=== PATIENT | female | born 1935 | race Caucasian/White ===

== ENCOUNTER 2021-03-08 09:35 | Observation (INO) ==
[2021-03-08 10:10] LABS: Basophils # (auto) 0.02 K/uL (0-0.2); Basophils % (auto) 0.2 %; Eosinophils # (auto) 0.59 K/uL (0-0.5); Eosinophils % (auto) 6.1 %; Hematocrit (blood only) 34.9 % (37-47); Hemoglobin 11.5 g/dL (12.0-16.0); Immature Granulocytes # (auto) 0.03 K/uL (0.00-0.02); Immature Granulocytes % (auto) 0.3 %; Lymphocytes # (auto) 1.03 K/uL (1.2-3.4); Lymphocytes % (auto) 10.7 %; Mean Corpuscular Hemoglobin 27.8 pg (25-34); Mean Corpuscular Volume 84.3 fL (80-100); Mean Platelet Volume 8.7 fL (7.4-10.4); Monocytes # (auto) 0.73 K/uL (0.11-0.59); Monocytes % (auto) 7.6 %; Neutrophils # (auto) 7.26 K/uL (1.4-6.5); Neutrophils % (auto) 75.1 %; Platelet Count 352 K/uL (130-400); RDW Coefficient of Variation 14.9 % (11.5-14.5); RDW Standard Deviation 46.2 fL (36.4-46.3); Red Blood Count 4.14 M/uL (4.2-5.4); White Blood Count 9.66 K/uL (4.8-10.8)
[2021-03-08] MEDS ORDERED: ONDANSETRON INJ 2 MG/ML 2 ML VIAL IV STA (10:27)
[2021-03-08] MEDS ORDERED: fentaNYL citrate 100 MCG/2 ML VIAL IV STA (10:27)
[2021-03-08 10:30] LABS: Alanine Aminotransferase 21 U/L (12-78); Albumin Level 3.7 gm/dl (3.4-5.0); Aspartate Aminotransferase 22 U/L (15-37); BUN Creatinine Ratio 36.3 (10-20); Blood Urea Nitrogen 23 mg/dl (7-18); Calcium 9.8 mg/dl (8.5-10.1); Carbon Dioxide 30 mmol/L (21-32); Chloride 96 mmol/L (98-107); Est GFR (Non-African American) 82.8 ml/min; Glucose 108 mg/dl (70-99); Potassium 3.5 mmol/L (3.5-5.1); Sodium 132 mmol/L (136-145)
[2021-03-08 10:40] LABS: Alkaline Phosphatase 60 U/L (45-117); Bilirubin,Total 0.4 mg/dl (0.2-1); Globulin 3.6 gm/dl (2.5-4.0); Total Protein 7.3 gm/dl (6.4-8.2); Troponin I < 0.015 ng/ml (0-0.045)
[2021-03-08] MEDS ORDERED: OPTIRAY 320 100ml IV ONE (10:44)
--- NOTE | 2021-03-08 10:50 | Emergency Department Note ---
Impression & Plan C7 cervical fracture, Recurrent falls, Left rib fracture, Fall, Closed head injury ED Provider Note Name: PINEDA GOTTI Age: 85 Sex: F Arrives Via: Walk-In Informant: Patient, Daughter] ED Provider: Rian Oviedo MD Chief Complaint: falls Impression: As Per ImpressionsAbove Medical Decision Makin yr old female with extensive PMH recently moved to [facility] and is in ED for send fall evaluation in the last 10 days. She broke right fibula last week and was going in to ortho today when tripped and fell over stoop, landing on left side & hitting posterior head. Exam with large hematoma back of head and TTP over left ribs. Pain controlled effectively with fentanyl. Xrays done at [facility] reveal multiple rib fractures varying ages. [place] ct imaging indicated which reveals no ICH, a new 25% compression fx C7, and multiple left rib fracture (1 of which is new). Stable, breathing comfortably, and labs/ekg look OK. Initially concern for syncope though after discussion with daughter and patient they both clearly state this was mechanical in nature without LOC. I will note she has no neck pain but given age and [facility] CT cervical had been completed finding the C7 fracture. I did review this with out Spinal Surgeon educational institution president who feels this is something that can be kept here for further evaluation and advised MRI obtained for his evaluation as inpatient. Hospitalist consulted as I do not feel this patient is safe for discharge at this time. Daughter and patient agree with this plan of action. Prior Medical Record and Triage/Nursing Notes reviewed by Me Additional history obtained from chart Differentials:Fracture, dislocation, contusion, intra-abdominal, pneumothorax, intrathoracic, intracranial, neurologic, compartment syndrome, rhabdomyolysis, as well as other pathologies. Vital Signs: reviewed and remarkable for no significant abnormalities Interventions: Fentanyl IV Labs:Reviewed and remarkable for no significant abnormalities Imaging:See Below EKG:Per My Interpretation: Indication fall (possible syncope): NSR 81 bpm, qtc 432 with poor baseline though no Ectopy nor Ischemia. Compared to EKG 02/28/21, no significant changes. Consults:Dr Lesia KERR Hospitalist Plan: Disposition:Hospitalization. Condition: Good History of Present Illness:85 yr old female arrives for evaluation of falls. Patient recently moved to [place] from [place] about 2 months ago and has yet to set up PCP. She notes the last two weeks has been feeling weak and tired. Associated with multiple falls and injuries. She fell and broke right ankle just last week. Was being seen in ortho today when tripped going over a step, fell on left back side. Notes posterior headache and severe pain with breathing on left posterior side. No syncope nor lightheadedness prior to fall. She notes she currently feels quite dizzy and pain is severe. Denies new arm/leg injuries and has no specific back nor abdominal no neck pain. No vision changes, nausea, vomiting, fevers, chills, urinary/bowel symptoms, swelling, calf pain, nor other symptoms. Takes no blood thinners nor aspirin. Denies previous head injury issues. No medications prior to arrival. Movement makes worse, rest makes better. ROS: See above HPI for pertinent positives & negatives. A total of 10 systems reviewed and were otherwise negative. Past Medical History:See Below Past Surgical History:See Below Family History:See Below Social History:See Below Home Medications:See Below Allergies:See Below Vitals:Blood Pressure: 161/80, Pulse 77, RR 16, T 3.5C, O2 98% on RA Physical Exam: GENERAL: Patient is unwell appearing and in moderate distress. HEAD: Large hematoma left occipital scalp. EYES: No scleral icterus, unremarkable pupils. ENT: Mucous membranes moist, no nasal congestion. NECK: No masses appreciated, nomeningismus, trachea is midline. CHEST: TTP entire left rib area laterally RESPIRATORY: No dyspnea. Clear to auscultation and equal bilaterally. No wheeze, no rhonchi. CARDIOVASCULAR: Regular rate and rhythm.No murmurs, rubs, gallops appreciated. GASTROINTESTINAL: Abdomen soft, non-tender, no peritonitis.Bowel sounds positive.No masses appreciated. BACK: No midline tenderness, no CVA tenderness EXTREMITIES: Right ankle in boot, multiple abrasions of arms/legs. Normal motion all extremities, no cyanosis, no edema. NEUROLOGIC: Alert and oriented, no acute motor or sensory deficits, no focal weakness, cranial nerves grossly intact. SKIN: No rash, no jaundice, no diaphoresis. PSYCH: Appropriate GCS: 15 ED Course: Times/Reassessments: feeling much improved comfortable with [place] J in place. Breathing without difficulty. Rian Oviedo MD Past Med/Surg History Medical History Anxiety Depression Fibromyalgia GERD (gastroesophageal reflux disease) Hypothyroidism Rheumatoid arthritis Surgical History H/O total hip arthroplasty H/O total knee replacement H/O: hysterectomy History of lumbar fusion History of partial nephrectomy Family History Other No pertinent family history Social History Smoking Status: Never smoker Second Hand Exposure: No; Do You Dip or Chew Tobacco: No; Tobacco Cessation Education Requested by Patient: No Hx Alcohol Use: No Hx Substance Use: No Preferred Language: Fijian Communication Ability: Effective Security Investigator Required: No Beliefs That Will Affect Care: None Current Living Situation: Other current occupational status: retired Other Information That Helps Us Care for You: No Feels Safe at Home: Yes Safety Concerns: Feels Safe At This Time Assistive Devices: None Allergies Allergies Allergy/AdvReac Type Severity Reaction Status Date / Time morphine Allergy Unknown DIZZINESS Verified 03/08/21 11:08 nickel Allergy Unknown EARS GET Verified 03/08/21 11:08 SORE FROM [place] WITH NICKEL Penicillins Allergy Unknown RASH Verified 03/08/21 11:08 soy Allergy Unknown HEADACHE Verified 03/08/21 11:08 Home Meds Home Medications Medication Instructions Recorded Confirmed albuterol sulfate 2.5 mg INHALATION DAILY PRN 03/08/21 03/08/21 aspirin 81 mg capsule 81 mg PO DAILY 03/08/21 03/08/21 budesonide-formoterol HFA 160 2 puff INHALATION BID PRN 03/08/21 03/08/21 mcg-4.5 mcg/actuation aerosol inhaler (Symbicort) calcium carbonate 500 mg calcium 1,000 mg PO BID 03/08/21 03/08/21 (1,250 mg) tablet (Calcium 500) dexlansoprazole 60 mg 60 mg PO DAILY 03/08/21 03/08/21 capsule,biphase delayed release (Dexilant) duloxetine 60 mg capsule,delayed 60 mg PO HS 03/08/21 03/08/21 release fesoterodine 4 mg tablet,extended 4 mg PO DAILY 03/08/21 03/08/21 release 24 hr (Toviaz) fluoxetine 20 mg capsule 10 mg PO BID 03/08/21 03/08/21 ipratropium bromide 21 mcg (0.03 2 spray INTRANASAL BID PRN 03/08/21 03/08/21 %) nasal spray levothyroxine 75 mcg tablet 75 mcg PO DAILY 03/08/21 03/08/21 lifitegrast 5 % eye drops in a 1 drp OPHTHALMIC (EYE) BID PRN 03/08/21 03/08/21 dropperette (Xiidra) magnesium 200 mg tablet 1,200 mg PO DAILY 03/08/21 03/08/21 methocarbamol 750 mg tablet 1,500 mg PO TID 03/08/21 03/08/21 pramipexole 1 mg tablet 2 mg PO HS 03/08/21 03/08/21 prednisone 5 mg tablet 2.5 mg PO BID 03/08/21 03/08/21 pregabalin 150 mg capsule 150 mg PO TID 03/08/21 03/08/21 tapentadol 50 mg tablet (Nucynta) 50 mg PO TID 03/08/21 03/08/21 Previous Rx's Medication Instructions Recorded etodolac 200 mg capsule 200 mg PO Q12H PRN #14 cap 02/28/21 Results & Data (ED) Vital Signs Vital Signs - 24 hr 03/08/21 11:17 03/08/21 12:00 Pulse Rate 77 87 Pulse Rate from SpO2 Sensor 76 87 Respiratory Rate 13 18 Blood Pressure 144/87 H 144/87 H Blood Pressure Mean 106 106 Pulse Oximetry 97 100 Laboratory Data Result diagrams: 03/09/21 06:09 03/09/21 06:09 Lab Results 03/08/21 03/08/21 03/08/21 Range/Units 10:00 10:00 10:00 WBC 9.66 (4.8-10.8) K/uL RBC 4.14 L (4.2-5.4) M/uL Hgb 11.5 L (12.0-16.0) g/dL Hct 34.9 L (37-47) % MCV 84.3 (80-100) fL MCH 27.8 (25-34) pg MCHC 33.0 (32-36) g/dL RDW Std Deviation 46.2 (36.4-46.3) fL RDW Coeff of Edgard 14.9 H (11.5-14.5) % Plt Count 352 (130-400) K/uL MPV 8.7 (7.4-10.4) fL Immature Gran % (Auto) 0.3 % Neut % (Auto) 75.1 % Lymph % (Auto) 10.7 % Blaine % (Auto) 7.6 % Eos % (Auto) 6.1 % Baso % (Auto) 0.2 % Neut # (Auto) 7.26 H (1.4-6.5) K/uL Lymph # (Auto) 1.03 L (1.2-3.4) K/uL Blaine # (Auto) 0.73 H (0.11-0.59) K/uL Eos # (Auto) 0.59 H (0-0.5) K/uL Baso # (Auto) 0.02 (0-0.2) K/uL Immature Gran # (Auto) 0.03 H (0.00-0.02) K/uL ESR 20 (0-30) mm/hr Sodium 132 L (136-145) mmol/L Potassium 3.5 (3.5-5.1) mmol/L Chloride 96 L (98-107) mmol/L Carbon Dioxide 30 (21-32) mmol/L Anion Gap 6.0 (3-11) BUN 23 H (7-18) mg/dl Creatinine 0.62 (0.6-1.2) mg/dl Est Cr Clr Drug Dosing Not Reportable Est GFR ( Amer) 96.0 ml/min Est GFR (Non-Af Amer) 82.8 ml/min BUN/Creatinine Ratio 36.3 H (10-20) Glucose 108 H (70-99) mg/dl Calcium 9.8 (8.5-10.1) mg/dl Total Bilirubin 0.4 (0.2-1) mg/dl AST 22 (15-37) U/L ALT 21 (12-78) U/L Alkaline Phosphatase 60 (45-117) U/L Troponin I < 0.015 (0-0.045) ng/ml C-Reactive Protein (0-0.29) mg/dl Total Protein 7.3 (6.4-8.2) gm/dl Albumin 3.7 (3.4-5.0) gm/dl Globulin 3.6 (2.5-4.0) gm/dl Albumin/Globulin Ratio 1.0 (0.9-2) TSH 7.820 H (0.300-4.500) uIu/ml COVID-19 Eval Order SARS-CoV-2 (PCR) (Negative) 03/08/21 03/08/21 03/08/21 Range/Units 10:00 12:33 12:33 WBC (4.8-10.8) K/uL RBC (4.2-5.4) M/uL Hgb (12.0-16.0) g/dL Hct (37-47) % MCV (80-100) fL MCH (25-34) pg MCHC (32-36) g/dL RDW Std Deviation (36.4-46.3) fL RDW Coeff of Edgard (11.5-14.5) % Plt Count (130-400) K/uL MPV (7.4-10.4) fL Immature Gran % (Auto) % Neut % (Auto) % Lymph % (Auto) % Blaine % (Auto) % Eos % (Auto) % Baso % (Auto) % Neut # (Auto) (1.4-6.5) K/uL Lymph # (Auto) (1.2-3.4) K/uL Blaine # (Auto) (0.11-0.59) K/uL Eos # (Auto) (0-0.5) K/uL Baso # (Auto) (0-0.2) K/uL Immature Gran # (Auto) (0.00-0.02) K/uL ESR (0-30) mm/hr Sodium (136-145) mmol/L Potassium (3.5-5.1) mmol/L Chloride (98-107) mmol/L Carbon Dioxide (21-32) mmol/L Anion Gap (3-11) BUN (7-18) mg/dl Creatinine (0.6-1.2) mg/dl Est Cr Clr Drug Dosing Est GFR ( Amer) ml/min Est GFR (Non-Af Amer) ml/min BUN/Creatinine Ratio (10-20) Glucose (70-99) mg/dl Calcium (8.5-10.1) mg/dl Total Bilirubin (0.2-1) mg/dl AST (15-37) U/L ALT (12-78) U/L Alkaline Phosphatase (45-117) U/L Troponin I (0-0.045) ng/ml C-Reactive Protein 3.47 H (0-0.29) mg/dl Total Protein (6.4-8.2) gm/dl Albumin (3.4-5.0) gm/dl Globulin (2.5-4.0) gm/dl Albumin/Globulin Ratio (0.9-2) TSH (0.300-4.500) uIu/ml COVID-19 Eval Order Covid19 at [facility] SARS-CoV-2 (PCR) NEGATIVE (Negative) Administered Medications Acetaminophen (Acetaminophen 500 Mg Tab) 1,000 mg PO TID PHILLIP Stop: 04/07/21 13:59 Last Admin: 03/09/21 09:05 Dose: 1,000 mg Documented by: [id number] Admin: 03/08/21 20:54 Dose: 1,000 mg Documented by: [id number] Admin: 03/08/21 13:57 Dose: 1,000 mg Documented by: [id number] Aspirin (Aspirin 81 Mg Ectab) 81 mg PO DAILY PHILLIP Stop: 04/08/21 08:59 Last Admin: 03/09/21 09:04 Dose: 81 mg Documented by: [id number] Bisacodyl (Bisacodyl 5 Mg Tabec) 5 mg PO HS PRN PRN Reason: Constipation Stop: 04/07/21 21:16 Last Admin: 03/08/21 21:27 Dose: 5 mg Documented by: [id number] Calcium Carbonate (Calcium Carbonate 1250mg Tab) 1,250 mg PO BID PHILLIP Stop: 04/07/21 20:59 Last Admin: 03/09/21 09:04 Dose: 1,250 mg Documented by: [id number] Admin: 03/08/21 20:54 Dose: 1,250 mg Documented by: [id number] Duloxetine HCl (Duloxetine Hcl 60 Mg Cap) 60 mg PO HS PHILLIP Stop: 04/07/21 20:59 Last Admin: 03/08/21 20:54 Dose: 60 mg Documented by: [id number] Fluoxetine HCl (Fluoxetine Hcl 10 Mg Cap) 10 mg PO BID PHILLIP Stop: 04/07/21 20:59 Last Admin: 03/09/21 09:04 Dose: 10 mg Documented by: [id number] Admin: 03/08/21 20:55 Dose: 10 mg Documented by: [id number] Levothyroxine Sodium (Levothyroxine Sodium 75 Mcg Tablet) 75 mcg PO DAILYBB PHILLIP Stop: 04/08/21 06:29 Last Admin: 03/09/21 05:35 Dose: 75 mcg Documented by: [id number] Magnesium Oxide (Magnesium Oxide 400 Mg Tab) 1,200 mg PO DAILY PHILLIP Stop: 04/08/21 08:59 Last Admin: 03/09/21 09:04 Dose: 1,200 mg Documented by: [id number] Miscellaneous (Toviaz - Order Awaiting Action) 1 ea N/A QS [facility] Stop: 04/08/21 00:00 Last Admin: 03/09/21 07:29 Dose: Not Given Documented by: [id number] Admin: 03/09/21 00:48 Dose: Not Given Documented by: [id number] Miscellaneous (Etodolac - Order Awaiting Action) 1 ea N/A QS [facility] Stop: 04/08/21 00:00 Last Admin: 03/09/21 07:29 Dose: Not Given Documented by: [id number] Admin: 03/09/21 00:47 Dose: Not Given Documented by: [id number] Miscellaneous (Lifitegrast [Xiidra] - Order Awaiting Action) 1 ea N/A QS [facility] Stop: 04/08/21 00:00 Last Admin: 03/09/21 07:29 Dose: Not Given Documented by: [id number] Admin: 03/09/21 00:48 Dose: Not Given Documented by: [id number] Pantoprazole Sodium (Pantoprazole 40 Mg Tab) 40 mg PO DAILY PHILLIP Stop: 04/08/21 08:59 Last Admin: 03/09/21 09:04 Dose: 40 mg Documented by: [id number] Polyethylene Glycol (Polyethylene (Miralax) 17 Gm Pack) 17 gm PO DAILY PHILLIP Stop: 04/08/21 08:59 Last Admin: 03/09/21 09:05 Dose: 17 gm Documented by: [id number] Pramipexole Dihydrochloride (Pramipexole Dihydrochlo 0.5 Mg Tab) 2 mg PO HS [facility] Stop: 04/07/21 20:59 Last Admin: 03/08/21 20:56 Dose: 2 mg Documented by: [id number] Prednisone (Prednisone 2.5 Mg Tab) 2.5 mg PO BID PHILLIP Stop: 04/07/21 20:59 Last Admin: 03/09/21 09:04 Dose: 2.5 mg Documented by: [id number] Admin: 03/08/21 20:57 Dose: 2.5 mg Documented by: [id number] Pregabalin (Pregabalin 150 Mg Cap) 150 mg PO TID PHILLIP Stop: 04/07/21 20:59 Last Admin: 03/09/21 09:05 Dose: 150 mg Documented by: [id number] Admin: 03/08/21 20:57 Dose: 150 mg Documented by: [id number] Tapentadol (Tapentadol Hcl 50 Mg Tab) 50 mg PO TID PRN PRN Reason: Pain Stop: 03/22/21 15:09 Last Admin: 03/08/21 20:57 Dose: 50 mg Documented by: [id number] Discontinued Medications Fentanyl Citrate (Fentanyl Citrate 100 Mcg/2 Ml Vial) 50 mcg IV NOW STA Stop: 03/08/21 10:28 Last Admin: 03/08/21 11:17 Dose: 50 mcg Documented by: [id number] Sodium Chloride (Nss 1000ml) 1,000 mls @ 999 mls/hr IV .Q1H1M ONE Stop: 03/08/21 11:51 Last Infusion: 03/08/21 12:36 Dose: 0 mls/hr Documented by: [id number] Admin: 03/08/21 11:17 Dose: 999 mls/hr Documented by: [id number] Ioversol (Optiray 320 100ml) 94 ml IV ONCE ONE Stop: 03/08/21 10:45 Last Admin: 03/08/21 10:50 Dose: 94 ml Documented by: [id number] Ketorolac Tromethamine (Ketorolac Tromethamine 15 Mg/Ml Vial) 15 mg IV NOW ONE Stop: 03/08/21 23:14 Last Admin: 03/08/21 23:25 Dose: 15 mg Documented by: [id number] Ondansetron HCl (Ondansetron Inj 2 Mg/Ml 2 Ml Vial) 4 mg IV NOW STA Stop: 03/08/21 10:28 Last Admin: 03/08/21 11:17 Dose: 4 mg Documented by: [id number] Imaging Data Radiologist's Impression: Cervical Spine CT 03/08/21 10:27 CT cervical spine wo con CT DOSE: 1067.13 mGy.cm CLINICAL HISTORY: 85 years-old Female with fall, head injury, posterior pain. Acute head and neck injury status post fall COMPARISON: CT cervical spine 02/28/2021 TECHNIQUE: Multiple axial CT images of the cervical spine were obtained without contrast. A dose lowering technique was utilized adhering to the principles of ALARA. FINDINGS: Demineralized appearance of the bones. Moderate to severe degeneration with partially calcified pannus at C1-C2. Mild chronic appearing superior endplate compression at several levels. 4 mm anterolisthesis C4 on C5 is unchanged and likely degenerative. Moderate to severe multilevel facet arthr osis. Posterior disc osteophyte complex at C6-C7. Indeterminate 8 mm lucent focus involves the left C4 lamina is redemonstrated. Multilevel intervertebral disc space narrowing, moderate left C5-C6. Multilevel central canal and neural foraminal narrowing is noted. There is an acute C7 compression fracture with approximately 25% vertebral body height loss. 3 mm retropulsion. No significant paravertebral edema or high-grade central canal stenosis. No pneumothorax. No prevertebral edema. Calcified plaque of the carotid bulbs. IMPRESSION: Acute 25% superior endplate compression deformity of C7 with 3 mm retropulsion is new from 02/28/2021. No significant central canal stenosis. ACT 112: Negative or not required by law. The above report was generated using voice recognition software. It may contain grammatical, syntax or spelling errors. Electronically signed by: Robbi Fofana M.D. 03/08/2021 11:[address] 03/08/21 10:27 CT SCAN OF THE CHEST WITH IV CONTRAST CLINICAL HISTORY: Fall. Left-sided chest wall injury. COMPARISON STUDY: Chest and rib radiographs dated 03/08/2021. Chest x-ray dated 11/21/2015. TECHNIQUE: Following the IV administration of 94 cc of Optiray 320, CT scan of the thorax was performed from the thoracic inlet to the upper abdomen. Images are reviewed in the axial, sagittal, and coronal planes. IV contrast was administered without complication. A dose lowering technique was utilized a dhering to the principles of ALARA. There is streak artifact from the left arm which could not be elevated above the chest. FINDINGS: Thyroid: Atrophic. Thoracic aorta: There is atherosclerotic calcification of the thoracic aorta, which is normal in caliber and demonstrates standard 3-vessel arch anatomy. No dissection is seen. Pulmonary vasculature: The pulmonary trunk is normal in caliber. There are no filling defects identified in the central pulmonary vessels to indicate pulmonary embolus. Note that this examination was not protocoled for evaluation of the pulmonary arteries. Heart: The heart is enlarged and without pericardial effusion. The mitral annulus is densely calcified. Lungs and pleural spaces: There is no airspace consolidation, pleural effusion, or pneumothorax. Foci of scarring/atelectasis are seen throughout both lungs. The trachea and central airways are clear. Mediastinum: There is no mediastinal hematoma or lymphadenopathy. Anahi: Clear. Axillae: There is no axillary lymphadenopathy. Upper abdomen: There is a small hiatal hernia. Partially visualized upper abdominal viscera is otherwise within normal limits. Skeletal structures: The skeletal structures are osteopenic. There is an acute appearing left posterior 8th rib fracture. There are subacute/healing left posterior 6th and 7th rib fractures. There are numerous additional subacute to chronic appearing left anterior rib fractures. There are also several subacute appearing right anterolateral rib fractures. No lytic or blastic bony lesions are seen. There is chronic posttraumatic deformity of the sternum. There is a s evere chronic compression deformity of T8. Milder chronic compression deformities are noted in T5 and T11. These were also seen on 01/13/2016 chest x- ray. IMPRESSION: 1. There is an acute appearing left posterior 8th rib fracture. 2. Numerous additional subacute appearing rib fractures are seen bilaterally. 3. There is no airspace consolidation, pleural effusion, or pneumothorax. 4. Cardiomegaly. 5. Additional findings as above. ACT 112: Negative or not required by law. Electronically signed by: Jose Maria Santiago M.D. 03/08/2021 11:[address] 03/08/21 10:27 CT OF THE HEAD WITHOUT CONTRAST CLINICAL HISTORY: fall, head injury COMPARISON STUDY: Head CT February 28, 2021. TECHNIQUE: Helical axial images of the head were obtained without IV contrast. Automated exposure control was utilized for the study. A dose lowering technique was utilized adhering to the principles of ALARA. FINDINGS: No acute intracranial hemorrhage, midline shift or mass effect is present. The ventricular system is unremarkable. The basal cisterns are patent. No extra-axial collections are present. There are no findings to suggest acute dural sinus thrombosis or acute territorial infarct. No significant calvarial abnormalities are present. Visualized portions of the sinuses and mastoid air cells are clear. A left posterior scalp contusion is present. IMPRESSION: 1. No acute intracranial findings. 2. Left posterior scalp contusion. No calvarial fracture. ACT 112: Negative or not required by law. Electronically signed by: Dominic Sutton M.D. 03/08/2021 11:05 AM Cervical Spine MRI 03/08/21 11:54 MR cervical spine wo con HISTORY: 85 years-old Female C7 Fracture follow up study in a patient with acute C7 fracture COMPARISON: CT cervical spine of same day TECHNIQUE: Multiple axial CT images of the cervical spine were obtained without the use of IV contrast. FINDINGS: Motion degraded exam limits evaluation of the central canal and neural foramina. The imaged posterior fossa structures are unremarkable. There is an acute superior endplate compression deformity at C7 and with approximately 25% vertebral body height loss. 3 mm retropulsion. Central canal or neural foraminal narrowing as below. Mild to moderate prevertebral edema extends from C3-C4 through the upper thoracic spine. Likely degenerative marrow edema at C5-C6. Mild to moderate bone marrow edema of the facets and posterior elements is likely degenerative. Left-sided C4-C5 facet effusion. C2-C3: Uncovertebral spurring with small posterior disc osteophyte complex and facet arthrosis. The central canal is patent. Moderate right and mild left neural foraminal stenosis. C3-C4: Uncovertebral spurring with small posterior disc osteophyte complex and facet arthrosis. Mild central canal stenosis. Mild to moderate bilateral neural foraminal stenosis. C4-C5: Degenerative related grade 1 anterolisthesis. Uncovertebral spurring with posterior disc osteophyte complex and facet arthrosis. No significant central canal stenosis. Moderate left with mild to moderate right neural foraminal narrowing suggested. C5-C6: Severe intervertebral disc space narrowing with uncovertebral spurring and small posterior disc osteophyte complex with facet arthrosis. Mild central canal stenosis. There is suggestion of moderate bilateral neural foraminal stenosis. C6-C7: Acute T7 fracture with retropulsion flattens the ventral thecal sac. No significant central canal narrowing. Mild bilateral foraminal stenosis. C7-T1: No central canal or neural foraminal narrowing. IMPRESSION: 1. Moderately motion degraded exam. 2. Acute 25% superior endplate compression deformity at C7 with 3 mm retropulsion. No significant associated central canal stenosis. 3. Prevertebral edema extending from C3-C4 through the upper thoracic spine is likely secondary to the acute C7 fracture. An injury of the anterior longitudinal ligament could appear similarly. 4. Multilevel discogenic degeneration with facet arthrosis results in multilevel neural foraminal stenosis as above. 5. Mild degenerative related central canal stenosis at C5-C6. ACT 112: Negative or not required by law. The above report was generated using voice recognition software. It may contain grammatical, syntax or spelling errors. Electronically signed by: Robbi Fofana M.D. 03/08/2021 1:58 PM Discharge Plan Visit Data Chief Complaint: Syncope Stated Complaint: SYNCOPE ED Provider: Rian Oviedo Discharge Problem: C7 cervical fracture, Recurrent falls, Left rib fracture, Fall, Closed head injury Patient Disposition: Admitted As Inpatient Discharge Instructions Interventions: ED Discharge Assessment Last Done: 03/08/21 14:55 Discharge Problem: C7 cervical fracture Qualifiers: Encounter type: initial encounter Fracture type: closed Fracture morphology: unspecified fracture morphology Fracture alignment: nondisplaced Qualified Code(s): S12.601A - Unspecified nondisplaced fracture of seventh cervical vertebra, initial encounter for closed fracture Left rib fracture Qualifiers: Encounter type: initial encounter Rib fracture type: single rib Fracture type: closed Qualified Code(s): S22.32XA - Fracture of one rib, left side, initial encounter for closed fracture Fall Qualifiers: Encounter type: initial encounter Qualified Code(s): W19.XXXA - Unspecified fall, initial encounter Closed head injury Qualifiers: Encounter type: initial encounter Qualified Code(s): S09.90XA - Unspecified injury of head, initial encounter
[2021-03-08] MEDS ORDERED: SODIUM CHLORIDE 0.9% 1000ML 1,000 ML IV ONE (10:51)
--- NOTE | 2021-03-08 11:05 | CT Scan Report ---
CT cervical spine wo con CT DOSE: 1067.13 mGy.cm CLINICAL HISTORY: 85 years-old Female with fall, head injury, posterior pain. Acute head and neck in jury status post fall COMPARISON: CT cervical spine 02/28/2021 TECHNIQUE: Multiple axial CT images of the cervical spine were obtained without contrast. A dose low ering technique was utilized adhering to the principles of ALARA. FINDINGS: Demineralized appearance of the bones. Moderate to severe degeneration with partially calci fied pannus at C1-C2. Mild chronic appearing superior endplate compression at several levels. 4 mm an terolisthesis C4 on C5 is unchanged and likely degenerative. Moderate to severe multilevel facet arth rosis. Posterior disc osteophyte complex at C6-C7. Indeterminate 8 mm lucent focus involves the left C4 lamina is redemonstrated. Multilevel intervertebral disc space narrowing, moderate left C5-C6. Mul tilevel central canal and neural foraminal narrowing is noted. There is an acute C7 compression fract ure with approximately 25% vertebral body height loss. 3 mm retropulsion. No significant paravertebra l edema or high-grade central canal stenosis. No pneumothorax. No prevertebral edema. Calcified plaque of the carotid bulbs. IMPRESSION: Acute 25% superior endplate compression deformity of C7 with 3 mm retropulsion is new from 02/28/2021. No significant central canal stenosis. ACT 112: Negative or not required by law. The above report was generated using voice recognition software. It may contain grammatical, syntax o r spelling errors. Electronically signed by: Robbi Fofana M.D. 03/08/2021 11:04 AM
--- NOTE | 2021-03-08 11:06 | CT Scan Report ---
CT OF THE HEAD WITHOUT CONTRAST CLINICAL HISTORY: fall, head injury COMPARISON STUDY: Head CT February 28, 2021. TECHNIQUE: Helical axial images of the head were obtained without IV contrast. Automated exposure con trol was utilized for the study. A dose lowering technique was utilized adhering to the principles o f ALARA. FINDINGS: No acute intracranial hemorrhage, midline shift or mass effect is present. The ventricular system is unremarkable. The basal cisterns are patent. No extra-axial collections are present. There are no findings to suggest acute dural sinus thrombosis or acute territorial infarct. No significant calvarial abnormalities are present. Visualized portions of the sinuses and mastoid air cells are marin ar. A left posterior scalp contusion is present. IMPRESSION: 1. No acute intracranial findings. 2. Left posterior scalp contusion. No calvarial fracture. ACT 112: Negative or not required by law. Electronically signed by: Dominic Sutton M.D. 03/08/2021 11:05 AM
--- NOTE | 2021-03-08 11:16 | CT Scan Report ---
CT SCAN OF THE CHEST WITH IV CONTRAST CLINICAL HISTORY: Fall. Left-sided chest wall injury. COMPARISON STUDY: Chest and rib radiographs dated 03/08/2021. Chest x-ray dated 11/21/2015. TECHNIQUE: Following the IV administration of 94 cc of Optiray 320, CT scan of the thorax was perform ed from the thoracic inlet to the upper abdomen. Images are reviewed in the axial, sagittal, and lavern nal planes. IV contrast was administered without complication. A dose lowering technique was utilize d adhering to the principles of ALARA. There is streak artifact from the left arm which could not be elevated above the chest. FINDINGS: Thyroid: Atrophic. Thoracic aorta: There is atherosclerotic calcification of the thoracic aorta, which is normal in [place] and demonstrates standard 3-vessel arch anatomy. No dissection is seen. Pulmonary vasculature: The pulmonary trunk is normal in caliber. There are no filling defects identif ied in the central pulmonary vessels to indicate pulmonary embolus. Note that this examination was no t protocoled for evaluation of the pulmonary arteries. Heart: The heart is enlarged and without pericardial effusion. The mitral annulus is densely calcifie d. Lungs and pleural spaces: There is no airspace consolidation, pleural effusion, or pneumothorax. Foci of scarring/atelectasis are seen throughout both lungs. The trachea and central airways are clear. Mediastinum: There is no mediastinal hematoma or lymphadenopathy. Anahi: Clear. Axillae: There is no axillary lymphadenopathy. Upper abdomen: There is a small hiatal hernia. Partially visualized upper abdominal viscera is otherw ise within normal limits. Skeletal structures: The skeletal structures are osteopenic. There is an acute appearing left posteri or 8th rib fracture. There are subacute/healing left posterior 6th and 7th rib fractures. There are n umerous additional subacute to chronic appearing left anterior rib fractures. There are also several subacute appearing right anterolateral rib fractures. No lytic or blastic bony lesions are seen. Ther e is chronic posttraumatic deformity of the sternum. There is a severe chronic compression deformity of T8. Milder chronic compression deformities are noted in T5 and T11. These were also seen on 016 chest x-ray. IMPRESSION: 1. There is an acute appearing left posterior 8th rib fracture. 2. Numerous additional subacute appearing rib fractures are seen bilaterally. 3. There is no airspace consolidation, pleural effusion, or pneumothorax. 4. Cardiomegaly. 5. Additional findings as above. ACT 112: Negative or not required by law. Electronically signed by: Jose Maria Santiago M.D. 03/08/2021 11:14 AM
--- NOTE | 2021-03-08 13:24 | History & Physical Report ---
Date of Service March 08, 2021 Assessment & Plan (1) Multiple falls: Plan: Multifactorial including arthritis, peripheral neuropathy, iatrogenic (Nucynta, Lyrica, Diazepam, methocarbamol), lumbar spinal stenosis PT/OT (2) Cervical spine fracture: Plan: Saul Walden collar Consult ortho spine Vit D levels in AM, recommend DEXA scan as outpatient to consider bisphosphonate use (3) Closed fracture of heel bone: Plan: Toe touch weight bearing on right foot per last ortho note recommendations Given uncontrolled pain from this possibly contributing towards fall and limited options of pain killers will consult pain management to help with this (4) Cuboid fracture: Plan: As above (5) GERD (gastroesophageal reflux disease): Plan: Switch Dexilant for pantoprazole per hospital formulary (6) Fibromyalgia: Plan: Continue Lyrica and chronic pain medications with Nucynta (7) Depression: Plan: Continue fluoxetine 10mg PO daily and duloxetine 60mg PO HS (8) Rheumatoid arthritis: Plan: Continue chronic prednisone use 2.5mg PO BID Continue her chronic pain medications with Nucytna (9) Hypothyroidism: Plan: TSH 7.82. In setting of acute fall would not adjust her levothyroxine dosing. Repeat in 4-6 weeks. (10) Restless leg syndrome: Plan: Continue pramipexole 2mg PO HS Iron studies in AM (11) Lumbar stenosis with neurogenic claudication: Plan: Noted recent surgery for this ?cause of neuropathy. (12) Peripheral neuropathy: Plan: Unclear cause of this. B12 levels in AM. No diabetes. Recommend NCS as outpatient. (13) Overactive bladder: Plan: Continue Toviaz 4mg PO daily (14) Asthma: Plan: Unknown severity. Continue Symbicort 2 puff BID or hospital formulary equivalent. Plan: VTE Prophylaxis - SCDs, consider chemical prophylaxis depending on mobility Diet - regular Disposition observation status to med/tele to assess for arrythmia. Admission and Anticipated Discharge Date Admission Date: March 08, 2021 History of Present Illness Chief Complaint: Fall Primary Care Provider: [facility] Iman Hallman is an 85 year old female who presents to the ER after a fall. She is here with her niece but history mostly taken from the patient. She reports struggling to get a door open at her orthopedic appointment earlier today. She is recently toe touch weight bearing on her right foot from recent calcaneal fracture and she lost her balance and fell. She denies hitting her head. No new neck pain. No hip pain after falling. No presyncope, syncope, chest pain or shortness of breath prior to falling. She reports multiple episodes of falling over the last year but she is unsure why. Just tells me her balance is off. 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 She is only multiple medications increasing her risk of falls. She was recently prescribed diazepam on PDMP and reports using this mainly to sleep. She takes her methocarbamol once or twice a day during the day time for back spasms. Nycyta is prescribed TID but she reports using at bed time for sleep. Pregabalin has been longstanding for her peripheral neuropathy. She tells me she has pain all over from rheumatoid arthritis and fibromyalgia. She was previously seen by rheumatology in [place] but is yet to establish here. She recently moved here from [place] therefore prior history if somewhat limited to her recollection. She was living with her brother in [place] who recently and lost the house she was living in. She came to [facility] to look after her sister after her recently . Due to difficulties in switching her medicare from [place] to [place] she is yet to establish with any doctors in the area. In the ER CT imaging of her cervical spine showed an acute 25% superior endplate compression fracture of C7. She was placed in a [place] J collar. She denies any n ew pain in this region but has chronic neck pain for which she used to receive botox injections in [place]. Allergies Allergy/AdvReac Type Severity Reaction Status Date / Time morphine Allergy Unknown DIZZINESS Verified 03/08/21 11:08 nickel Allergy Unknown EARS GET Verified 03/08/21 11:08 SORE FROM EARRINGS WITH NICKEL Penicillins Allergy Unknown RASH Verified 03/08/21 11:08 soy Allergy Unknown HEADACHE Verified 03/08/21 11:08 Home Medications Medication Instructions Recorded Confirmed Type etodolac 200 mg capsule 200 mg PO Q12H PRN #14 cap 02/28/21 03/08/21 Rx albuterol sulfate 2.5 mg INHALATION DAILY PRN 03/08/21 03/08/21 History aspirin 81 mg capsule 81 mg PO DAILY 03/08/21 03/08/21 History budesonide-formoterol HFA 160 2 puff INHALATION BID PRN 03/08/21 03/08/21 History mcg-4.5 mcg/actuation aerosol inhaler (Symbicort) calcium carbonate 500 mg calcium 1,000 mg PO BID 03/08/21 03/08/21 History (1,250 mg) tablet (Calcium 500) dexlansoprazole 60 mg 60 mg PO DAILY 03/08/21 03/08/21 History capsule,biphase delayed release (Dexilant) duloxetine 60 mg capsule,delayed 60 mg PO HS 03/08/21 03/08/21 History release fesoterodine 4 mg tablet,extended 4 mg PO DAILY 03/08/21 03/08/21 History release 24 hr (Toviaz) fluoxetine 20 mg capsule 10 mg PO BID 03/08/21 03/08/21 History ipratropium bromide 21 mcg (0.03 2 spray INTRANASAL BID PRN 03/08/21 03/08/21 History %) nasal spray levothyroxine 75 mcg tablet 75 mcg PO DAILY 03/08/21 03/08/21 History lifitegrast 5 % eye drops in a 1 drp OPHTHALMIC (EYE) BID PRN 03/08/21 03/08/21 History dropperette (Xiidra) magnesium 200 mg tablet 1,200 mg PO DAILY 03/08/21 03/08/21 History methocarbamol 750 mg tablet 1,500 mg PO TID 03/08/21 03/08/21 History pramipexole 1 mg tablet 2 mg PO HS 03/08/21 03/08/21 History prednisone 5 mg tablet 2.5 mg PO BID 03/08/21 03/08/21 History pregabalin 150 mg capsule 150 mg PO TID 03/08/21 03/08/21 History tapentadol 50 mg tablet (Nucynta) 50 mg PO TID 03/08/21 03/08/21 History Past Med/Surg History Medical History (Updated 03/09/21 @ 06:15 by Sunny Graf MD) Anxiety Depression Fibromyalgia GERD (gastroesophageal reflux disease) Hypothyroidism Rheumatoid arthritis Surgical History H/O total hip arthroplasty H/O total knee replacement H/O: hysterectomy History of lumbar fusion History of partial nephrectomy Family History Other No pertinent family history Social History Smoking Status: Never smoker Second Hand Exposure: No; Do You Dip or Chew Tobacco: No; Tobacco Cessation Education Requested by Patient: No Hx Alcohol Use: No Hx Substance Use: No Preferred Language: Faroese Communication Ability: Effective Inspector Penetrant Required: No Beliefs That Will Affect Care: None Current Living Situation: Other current occupational status: retired Other Information That Helps Us Care for You: No Feels Safe at Home: Yes Safety Concerns: Feels Safe At This Time Assistive Devices: None Review of Systems Review of Systems: All systems reviewed & are unremarkable except as noted in HPI & below Neurologic: + falls Psychiatric: + depression Physical Exam Constitutional: well developed and well nourished; no acute distress Eyes: PERRL, conjunctivae normal, anicteric sclerae ENMT: external ear and nose normal, oropharynx normal Respiratory: normal respiratory effort, lungs clear to auscultation Cardiovascular: RRR, no murmur, no edema Gastrointestinal (Abdomen): normal bowel sounds, soft, nontender, no hepatosplenomegaly Musculoskeletal: Neck in [place] J collar - not examined Right leg in walking boot - not examined other than no calf pain or increased circumference appreciated No pain on bilateral hip rotation No significant joint swelling in hands, OA changes present with DIPJ osteophytes Skin: no rashes, warm and dry Neurologic: moves all extremities and awake; not confused Motor/Sensory: + sensory deficit (no knees b/l numbness); no tremor and no pronator drift Psychiatric: A+Ox3, euthymic affect Results & Data Results & Data ([facility]) Vital Signs (Past 12 Hours) Vital Signs Temp Pulse Resp BP Pulse Ox 03/08/21 12:00 87 18 144/87 H 100 03/08/21 11:17 77 13 144/87 H 97 03/08/21 09:45 36.5 C 77 16 161/80 H 98 Laboratory Results Abnormal lab results 03/08/21 03/08/21 Range/Units 10:00 10:00 RBC 4.14 L (4.2-5.4) M/uL Hgb 11.5 L (12.0-16.0) g/dL Hct 34.9 L (37-47) % RDW Coeff of Edgard 14.9 H (11.5-14.5) % Neut # (Auto) 7.26 H (1.4-6.5) K/uL Lymph # (Auto) 1.03 L (1.2-3.4) K/uL [place] # (Auto) 0.73 H (0.11-0.59) K/uL Eos # (Auto) 0.59 H (0-0.5) K/uL Immature Gran # (Auto) 0.03 H (0.00-0.02) K/uL Sodium 132 L (136-145) mmol/L Chloride 96 L (98-107) mmol/L BUN 23 H (7-18) mg/dl BUN/Creatinine Ratio 36.3 H (10-20) Glucose 108 H (70-99) mg/dl TSH 7.820 H (0.300-4.500) uIu/ml Diagnostic Findings CT OF THE HEAD WITHOUT CONTRAST CLINICAL HISTORY: fall, head injury COMPARISON STUDY: Head CT February 28, 2021. TECHNIQUE: Helical axial images of the head were obtained without IV contrast. Automated exposure control was utilized for the study. A dose lowering technique was utilized adhering to the principles of ALARA. FINDINGS: No acute intracranial hemorrhage, midline shift or mass effect is present. The ventricular system is unremarkable. The basal cisterns are patent. No extra-axial collections are present. There are no findings to suggest acute dural sinus thrombosis or acute territorial infarct. No significant calvarial abnormalities are present. Visualized portions of the sinuses and mastoid air cells are clear. A left posterior scalp contusion is present. IMPRESSION: 1. No acute intracranial findings. 2. Left posterior scalp contusion. No calvarial fracture. CT cervical spine wo con CT DOSE: 1067.13 mGy.cm CLINICAL HISTORY: 85 years-old Female with fall, head injury, posterior pain. Acute head and neck injury status post fall COMPARISON: CT cervical spine 02/28/2021 TECHNIQUE: Multiple axial CT images of the cervical spine were obtained without contrast. A dose lowering technique was utilized adhering to the principles of ALARA. FINDINGS: Demineralized appearance of the bones. Moderate to severe degeneration with partially calcified pannus at C1-C2. Mild chronic appearing superior endplate compression at several levels. 4 mm anterolisthesis C4 on C5 is unchanged and likely degenerative. Moderate to severe multilevel facet arthrosis. Posterior disc osteophyte complex at C6-C7. Indeterminate 8 mm lucent focus involves the left C4 lamina is redemonstrated. Multilevel intervertebral disc space narrowing, moderate left C5-C6. Multilevel central canal and neural foraminal narrowing is noted. There is an acute C7 compression fracture with approximately 25% vertebral body height loss. 3 mm retropulsion. No significant paravertebral edema or high-grade central canal stenosis. No pneumothorax. No prevertebral edema. Calcified plaque of the carotid bulbs. IMPRESSION: Acute 25% superior endplate compression deformity of C7 with 3 mm retropulsion is new from 02/28/2021. No significant central canal stenosis. CT SCAN OF THE CHEST WITH IV CONTRAST CLINICAL HISTORY: Fall. Left-sided chest wall injury. COMPARISON STUDY: Chest and rib radiographs dated 03/08/2021. Chest x-ray dated 11/21/2015. TECHNIQUE: Following the IV administration of 94 cc of Optiray 320, CT scan of the thorax was performed from the thoracic inlet to the upper abdomen. Images are reviewed in the axial, sagittal, and coronal planes. IV contrast was administered without complication. A dose lowering technique was utilized adhering to the principles of ALARA. There is streak artifact from the left arm which could not be elevated above the chest. FINDINGS: Thyroid: Atrophic. Thoracic aorta: There is atherosclerotic calcification of the thoracic aorta, which is normal in caliber and demonstrates standard 3-vessel arch anatomy. No dissection is seen. Pulmonary vasculature: The pulmonary trunk is normal in caliber. There are no filling defects identified in the central pulmonary vessels to indicate pulmonary embolus. Note that this examination was not protocoled for evaluation of the pulmonary arteries. Heart: The heart is enlarged and without pericardial effusion. The mitral annulus is densely calcified. Lungs and pleural spaces: There is no airspace consolidation, pleural effusion, or pneumothorax. Foci of scarring/atelectasis are seen throughout both lungs. The trachea and central airways are clear. Mediastinum: There is no mediastinal hematoma or lymphadenopathy. Anahi: Clear. Axillae: There is no axillary lymphadenopathy. Upper abdomen: There is a small hiatal hernia. Partially visualized upper abdominal viscera is otherwise within normal limits. Skeletal structures: The skeletal structures are osteopenic. There is an acute appearing left posterior 8th rib fracture. There are subacute/healing left posterior 6th and 7th rib fractures. There are numerous additional subacute to chronic appearing left anterior rib fractures. There are also several subacute appearing right anterolateral rib fractures. No lytic or blastic bony lesions are seen. There is chronic posttraumatic deformity of the sternum. There is a severe chronic compression deformity of T8. Milder chronic compression deformities are noted in T5 and T11. These were also seen on 01/13/2016 chest x- ray. IMPRESSION: 1. There is an acute appearing left posterior 8th rib fracture. 2. Numerous additional subacute appearing rib fractures are seen bilaterally. 3. There is no airspace consolidation, pleural effusion, or pneumothorax. 4. Cardiomegaly. 5. Additional findings as above. Medications Administered ER Medications Given: Fentanyl 50 mcg IV Ondansetron 4mg IV NSS 1L bolus ECG Indication: other (Fall) Rate (beats per minute): 81 Rhythm: normal sinus Findings: no acute ischemic change Comparison ECG Date: from (Feb 28, 2021) Change: no significant change Code Status & VTE Plan Code Status DNR/DNI VTE Prophylaxis Plan VTE Prophylaxis will be ordered: Yes Reason for no VTE drug order: Treatment not indicated PG Care Time/CCT Total # of Minutes Spent Total Time Spent with Patient: Total time spent is greater than 50% in coordination of care (as documented) at patient's floor/unit and/or counseling patient: Coding Level of Care Code INT OBSERVATION CARE 70M LVL 3 Diagnoses Closed fracture of heel bone S92.001A Calcaneus location: unspecified portion of calcaneus Encounter type: initial encounter Fracture alignment: nondisplaced Laterality: right Cuboid fracture S92.214A Encounter type: initial encounter Fracture alignment: nondisplaced Fracture type: closed Laterality: right GERD (gastroesophageal reflux disease) K21.9 Fibromyalgia M79.7 Depression F32.9 Rheumatoid arthritis M06.9 Hypothyroidism E03.9 Restless leg syndrome G25.81 Lumbar stenosis with neurogenic claudication M48.062 Peripheral neuropathy G62.9 Multiple falls R29.6 Cervical spine fracture S12.9XXA Overactive bladder N32.81 Asthma J45.909 (1) Closed fracture of heel bone Calcaneus location: unspecified portion of calcaneus Encounter type: initial encounter Fracture alignment: nondisplaced Laterality: right Qualified Code(s): S92.001A - Unspecified fracture of right calcaneus, initial encounter for closed fracture (2) Cuboid fracture Encounter type: initial encounter Fracture alignment: nondisplaced Fracture type: closed Laterality: right Qualified Code(s): S92.214A - Nondisplaced fracture of cuboid bone of right foot, initial encounter for closed fracture
[2021-03-08] MEDS: ACETAMINOPHEN 500 MG TAB PO SCH ×2 (13:57→20:54)
--- NOTE | 2021-03-08 14:00 | Magnetic Resonance Report ---
MR cervical spine wo con HISTORY: 85 years-old Female C7 Fracture follow up study in a patient with acute C7 fracture COMPARISON: CT cervical spine of same day TECHNIQUE: Multiple axial CT images of the cervical spine were obtained without the use of IV contras t. FINDINGS: Motion degraded exam limits evaluation of the central canal and neural foramina. The imaged posterior fossa structures are unremarkable. There is an acute superior endplate compression deformity at C7 a nd with approximately 25% vertebral body height loss. 3 mm retropulsion. Central canal or neural fora marisol narrowing as below. Mild to moderate prevertebral edema extends from C3-C4 through the upper th oracic spine. Likely degenerative marrow edema at C5-C6. Mild to moderate bone marrow edema of the fa cets and posterior elements is likely degenerative. Left-sided C4-C5 facet effusion. C2-C3: Uncovertebral spurring with small posterior disc osteophyte complex and facet arthrosis. The c entral canal is patent. Moderate right and mild left neural foraminal stenosis. C3-C4: Uncovertebral spurring with small posterior disc osteophyte complex and facet arthrosis. Mild central canal stenosis. Mild to moderate bilateral neural foraminal stenosis. C4-C5: Degenerative related grade 1 anterolisthesis. Uncovertebral spurring with posterior disc osteo phyte complex and facet arthrosis. No significant central canal stenosis. Moderate left with mild to moderate right neural foraminal narrowing suggested. C5-C6: Severe intervertebral disc space narrowing with uncovertebral spurring and small posterior dis c osteophyte complex with facet arthrosis. Mild central canal stenosis. There is suggestion of modera te bilateral neural foraminal stenosis. C6-C7: Acute T7 fracture with retropulsion flattens the ventral thecal sac. No significant central ca nal narrowing. Mild bilateral foraminal stenosis. C7-T1: No central canal or neural foraminal narrowing. IMPRESSION: 1. Moderately motion degraded exam. 2. Acute 25% superior endplate compression deformity at C7 with 3 mm retropulsion. No significant ass ociated central canal stenosis. 3. Prevertebral edema extending from C3-C4 through the upper thoracic spine is likely secondary to th e acute C7 fracture. An injury of the anterior longitudinal ligament could appear similarly. 4. Multilevel discogenic degeneration with facet arthrosis results in multilevel neural foraminal bebo nosis as above. 5. Mild degenerative related central canal stenosis at C5-C6. ACT 112: Negative or not required by law. The above report was generated using voice recognition software. It may contain grammatical, syntax o r spelling errors. Electronically signed by: Robbi Fofana M.D. 03/08/2021 1:58 PM
[2021-03-08] MEDS ORDERED: ALBUTEROL 0.083% NEBU SOLN 3 ML VIAL INH PRN (15:10)
[2021-03-08] MEDS ORDERED: INFLUENZA VACCINE HIGH DOSE PF 65+ 0.7 ML SYR IM ONE (15:44)
[2021-03-08] MEDS ORDERED: FLUTICASONE/VILANTEROL 200/25MCG 14 PUFFS/INHALER INH PRN (16:20)
[2021-03-08] MEDS ORDERED: IPRATROPIUM BROMIDE NASAL SPRAY 0.06% 15ML PRN (16:22)
[2021-03-08 18:25] LABS: Appearance Urine Clear (Clear); Bilirubin Urine Negative (Negative); Blood Urine Negative (Negative); Color Urine Yellow; Glucose Urine UA Negative (Negative); Ketones Urine Negative (Negative); Leukocyte Esterase Urine Negative (Negative); Nitrite Urine Negative (Negative); Protein Urine Negative (Negative); Specific Gravity Urine 1.019 (1.000-1.030); Urobilinogen Urine Negative (Negative)
[2021-03-08] MEDS: DULoxetine HCL 60 MG CAP PO SCH (20:54)
[2021-03-08] MEDS: CALCIUM CARBONATE 1250MG TAB PO SCH (20:54)
[2021-03-08] MEDS: FLUoxetine HCL 10 MG CAP PO SCH (20:55)
[2021-03-08] MEDS: PRAMIPEXOLE DIHYDROCHLO 0.5 MG TAB PO SCH (20:56)
[2021-03-08] MEDS: TAPENTADOL HCL 50 MG TAB PO PRN (20:57)
[2021-03-08] MEDS: predniSONE 2.5 MG TAB PO SCH (20:57)
[2021-03-08] MEDS: PREGABALIN 150 MG CAP PO SCH (20:57)
[2021-03-08] MEDS ORDERED: bisacodyL 5 MG TABEC PO PRN (21:17)
--- NOTE | 2021-03-08 22:33 | Electrocardiogram Report ---
Test Reason : Blood Pressure : / mmHG Vent. Rate : 081 BPM Atrial Rate : 081 BPM P-R Int : 166 ms QRS Dur : 068 ms QT Int : 372 ms P-R-T Axes : 051 048 065 degrees QTc Int : 432 ms Poor data quality, interpretation may be adversely affected Normal sinus rhythm Normal ECG When compared with ECG of 28-FEB-2021 13:04, Minimal criteria for Anterior infarct are no longer Present Confirmed by Herman Ahn ([id number]) on 03/08/2021 10:33:07 PM Referred By: REFERRED SELF Confirmed By:Herman Ahn
[2021-03-08] MEDS ORDERED: KETOROLAC TROMETHAMINE 15 MG/ML VIAL IV ONE (23:13)
[2021-03-09] MEDS: TOVIAZ - ORDER AWAITING ACTION SCH ×4 (00:48→23:32)
[2021-03-09] MEDS: LEVOTHYROXINE SODIUM 75 MCG TABLET PO SCH (05:35)
[2021-03-09 06:31] LABS: Basophils # (auto) 0.02 K/uL (0-0.2); Basophils % (auto) 0.3 %; Eosinophils # (auto) 0.54 K/uL (0-0.5); Eosinophils % (auto) 8.2 %; Hematocrit (blood only) 32.6 % (37-47); Hemoglobin 10.5 g/dL (12.0-16.0); Immature Granulocytes # (auto) 0.01 K/uL (0.00-0.02); Immature Granulocytes % (auto) 0.2 %; Lymphocytes # (auto) 0.81 K/uL (1.2-3.4); Lymphocytes % (auto) 12.3 %; Mean Corpuscular Hemoglobin 27.6 pg (25-34); Mean Corpuscular Hgb Conc 32.2 g/dL (32-36); Mean Corpuscular Volume 85.6 fL (80-100); Monocytes # (auto) 0.67 K/uL (0.11-0.59); Monocytes % (auto) 10.2 %; Neutrophils # (auto) 4.51 K/uL (1.4-6.5); Neutrophils % (auto) 68.8 %; Platelet Count 347 K/uL (130-400); RDW Coefficient of Variation 15.3 % (11.5-14.5); Red Blood Count 3.81 M/uL (4.2-5.4); White Blood Count 6.56 K/uL (4.8-10.8)
[2021-03-09 07:03] LABS: BUN Creatinine Ratio 36.2 (10-20); Calcium 8.7 mg/dl (8.5-10.1); Creatinine Clr Calc Pharmacy 84.3 ml/min; Est GFR (African American) 108.3 ml/min; Est GFR (Non-African American) 93.4 ml/min; Potassium 3.6 mmol/L (3.5-5.1)
[2021-03-09 07:08] LABS: Ferritin 84.6 ng/ml (8-388)
--- NOTE | 2021-03-09 08:45 | Pain Management Consultation ---
Date of Consultation March 09, 2021 Assessment & Plan (1) Cervical spine fracture: (2) Multiple falls: (3) Peripheral neuropathy: (4) Restless leg syndrome: (5) Rheumatoid arthritis: (6) Fibromyalgia: (7) Closed fracture of heel bone: Calcaneus location: unspecified portion of calcaneus Encounter type: initial encounter Fracture alignment: nondisplaced Laterality: right Qualified Code(s): S92.001A - Unspecified fracture of right calcaneus, initial encounter for closed fracture (8) Cuboid fracture: Encounter type: initial encounter Fracture alignment: nondisplaced Fracture type: closed Laterality: right Qualified Code(s): S92.214A - Nondisplaced fracture of cuboid bone of right foot, initial encounter for closed fracture (9) Lumbar stenosis with neurogenic claudication: (10) Closed fibular fracture: Patient states that her pain is well controlled with the use of Nucynta 50mg TID and PRN Tylenol. I would not recommend any changes. If pain increases, could consider increasing Nucynta dose to 75mg. Will sign off on the patient. Please call with any questions or concerns. History of Present Illness Attending Physician: Mitch Mckeon DO History of Present Illness Mrs. Hallman is an 85 year old female with a significant history of peripheral neuropathy, lumbar spinal canal stenosis, fibromyalgia, depression, rheumatoid arthritis, restless leg syndrome. She has had multiple falls which has resulted in C7 compression fracture, nondisplaced distal fibular fracture, calcaneal fracture, and cuboid fracture. [place] J neck brace is in place. She is wearing a CAM boot with limit weight bearing limitation. Patient has been on Nucynta 50mg TID for chronic pain complaints and with the additional of PRN Tylenol she states that her pain is well controlled. She denies any side effects of constipation. She does not seem confused. She is pleased with the current pain control. Case discussed with Dr. Martha Jimenez Allergies Allergy/AdvReac Type Severity Reaction Status Date / Time morphine Allergy Unknown DIZZINESS Verified 03/08/21 11:08 nickel Allergy Unknown EARS GET Verified 03/08/21 11:08 SORE FROM EARRINGS WITH NICKEL Penicillins Allergy Unknown RASH Verified 03/08/21 11:08 soy Allergy Unknown HEADACHE Verified 03/08/21 11:08 Home Medications Medication Instructions Recorded Confirmed Type etodolac 200 mg capsule 200 mg PO Q12H PRN #14 cap 02/28/21 03/08/21 Rx albuterol sulfate 2.5 mg INHALATION DAILY PRN 03/08/21 03/08/21 History aspirin 81 mg capsule 81 mg PO DAILY 03/08/21 03/08/21 History budesonide-formoterol HFA 160 2 puff INHALATION BID PRN 03/08/21 03/08/21 History mcg-4.5 mcg/actuation aerosol inhaler (Symbicort) calcium carbonate 500 mg calcium 1,000 mg PO BID 03/08/21 03/08/21 History (1,250 mg) tablet (Calcium 500) dexlansoprazole 60 mg 60 mg PO DAILY 03/08/21 03/08/21 History capsule,biphase delayed release (Dexilant) duloxetine 60 mg capsule,delayed 60 mg PO HS 03/08/21 03/08/21 History release fesoterodine 4 mg tablet,extended 4 mg PO DAILY 03/08/21 03/08/21 History release 24 hr (Toviaz) fluoxetine 20 mg capsule 10 mg PO BID 03/08/21 03/08/21 History ipratropium bromide 21 mcg (0.03 2 spray INTRANASAL BID PRN 03/08/21 03/08/21 History %) nasal spray levothyroxine 75 mcg tablet 75 mcg PO DAILY 03/08/21 03/08/21 History lifitegrast 5 % eye drops in a 1 drp OPHTHALMIC (EYE) BID PRN 03/08/21 03/08/21 History dropperette (Xiidra) magnesium 200 mg tablet 1,200 mg PO DAILY 03/08/21 03/08/21 History methocarbamol 750 mg tablet 1,500 mg PO TID 03/08/21 03/08/21 History pramipexole 1 mg tablet 2 mg PO HS 03/08/21 03/08/21 History prednisone 5 mg tablet 2.5 mg PO BID 03/08/21 03/08/21 History pregabalin 150 mg capsule 150 mg PO TID 03/08/21 03/08/21 History tapentadol 50 mg tablet (Nucynta) 50 mg PO TID 03/08/21 03/08/21 History Patient History Medical History Anxiety Depression Fibromyalgia GERD (gastroesophageal reflux disease) Hypothyroidism Rheumatoid arthritis Surgical History H/O total hip arthroplasty H/O total knee replacement H/O: hysterectomy History of lumbar fusion History of partial nephrectomy Family History Other No pertinent family history Social History Smoking Status: Never smoker Second Hand Exposure: No; Do You Dip or Chew Tobacco: No; Tobacco Cessation Education Requested by Patient: No Hx Alcohol Use: No Hx Substance Use: No Preferred Language: Hungarian Communication Ability: Effective Residential Designer Required: No Beliefs That Will Affect Care: None Current Living Situation: Other current occupational status: retired Other Information That Helps Us Care for You: No Feels Safe at Home: Yes Safety Concerns: Feels Safe At This Time Assistive Devices: None Physical Exam Physical Exam: GENERAL: This is an 85 year old female. Resting comfortably. HEAD/FACE: Normocephalic and atraumatic. EYES: No drainage or conjunctival injection. ENT: Nose without bleeding or discharge. Oral mucosa slightly dry. NECK: Wearing [place] J neck brace RESPIRATORY: Patient with unlabored breathing. No signs of respiratory distress. CHEST/AXILLA: Chest movement symmetrical. No deformities noted. ABDOMEN/GI: No distension SKIN: [place], warm and dry. No rash noted. NEURO: Alert and appears oriented. Speech is fluent. Cranial Nerves are grossly intact. PSYCH: Alert, pleasant, affect is calm Results ([facility]) Diagnostic Review MRI Findings: MR cervical spine wo con HISTORY: 85 years-old Female C7 Fracture follow up study in a patient with acute C7 fracture COMPARISON: CT cervical spine of same day TECHNIQUE: Multiple axial CT images of the cervical spine were obtained without the use of IV contrast. FINDINGS: Motion degraded exam limits evaluation of the central canal and neural foramina. The imaged posterior fossa structures are unremarkable. There is an acute superior endplate compression deformity at C7 and with approximately 25% vertebral body height loss. 3 mm retropulsion. Central canal or neural foraminal narrowing as below. Mild to moderate prevertebral edema extends from C3-C4 through the upper thoracic spine. Likely degenerative marrow edema at C5-C6. Mild to moderate bone marrow edema of the facets and posterior elements is likely degenerative. Left-sided C4-C5 facet effusion. C2-C3: Uncovertebral spurring with small posterior disc osteophyte complex and facet arthrosis. The central canal is patent. Moderate right and mild left neural foraminal stenosis. C3-C4: Uncovertebral spurring with small posterior disc osteophyte complex and facet arthrosis. Mild central canal stenosis. Mild to moderate bilateral neural foraminal stenosis. C4-C5: Degenerative related grade 1 anterolisthesis. Uncovertebral spurring with posterior disc osteophyte complex and facet arthrosis. No significant central canal stenosis. Moderate left with mild to moderate right neural foraminal narrowing suggested. C5-C6: Severe intervertebral disc space narrowing with uncovertebral spurring and small posterior disc osteophyte complex with facet arthrosis. Mild central canal stenosis. There is suggestion of moderate bilateral neural foraminal stenosis. C6-C7: Acute T7 fracture with retropulsion flattens the ventral thecal sac. No significant central canal narrowing. Mild bilateral foraminal stenosis. C7-T1: No central canal or neural foraminal narrowing. IMPRESSION: 1. Moderately motion degraded exam. 2. Acute 25% superior endplate compression deformity at C7 with 3 mm retropulsion. No significant associated central canal stenosis. 3. Prevertebral edema extending from C3-C4 through the upper thoracic spine is likely secondary to the acute C7 fracture. An injury of the anterior harpal gitudinal ligament could appear similarly. 4. Multilevel discogenic degeneration with facet arthrosis results in multilevel neural foraminal stenosis as above. 5. Mild degenerative related central canal stenosis at C5-C6. ACT 112: Negative or not required by law. The above report was generated using voice recognition software. It may contain grammatical, syntax or spelling errors. Electronically signed by: Robbi Fofana M.D. 03/08/2021 1:[address] Findings: CT cervical spine wo con CT DOSE: 1067.13 mGy.cm CLINICAL HISTORY: 85 years-old Female with fall, head injury, posterior pain. Acute head and neck injury status post fall COMPARISON: CT cervical spine 02/28/2021 TECHNIQUE: Multiple axial CT images of the cervical spine were obtained without contrast. A dose lowering technique was utilized adhering to the principles of ALARA. FINDINGS: Demineralized appearance of the bones. Moderate to severe degeneration with partially calcified pannus at C1-C2. Mild chronic appearing superior endplate compression at several levels. 4 mm anterolisthesis C4 on C5 is unchanged and likely degenerative. Moderate to severe multilevel facet arthrosis. Posterior disc osteophyte complex at C6-C7. Indeterminate 8 mm lucent focus involves the left C4 lamina is redemonstrated. Multilevel intervertebral disc space narrowing, moderate left C5-C6. Multilevel central canal and neural foraminal narrowing is noted. There is an acute C7 compression fracture with approximately 25% vertebral body height loss. 3 mm retropulsion. No significant paravertebral edema or high-grade central canal stenosis. No pneumothorax. No prevertebral edema. Calcified plaque of the carotid bulbs. IMPRESSION: Acute 25% superior endplate compression deformity of C7 with 3 mm retropulsion is new from 02/28/2021. No significant central canal stenosis. ACT 112: Negative or not required by law. The above report was generated using voice recognition software. It may contain grammatical, syntax or spelling errors. Electronically signed by: Robbi Fofana M.D. 03/08/2021 11:04 AM Radiology Findings: XR ankle RT min 3V routine CLINICAL HISTORY: fall COMPARISON: None FINDINGS: Right ankle and right foot soft tissue swelling is present. Note is made of an acute nondisplaced extensively comminuted right calcaneal fracture. Fracture extends to the subtalar joint. Talar dome is intact. Note is made of a transverse band of sclerosis within the distal right fibula at the level of the tibiotalar joint. There is subtle cortical irregularity. Subtle acute avulsion fracture of the proximal cuboid is noted. IMPRESSION: 1. Acute nondisplaced comminuted right calcaneal fracture which extends to the subtalar joint. 2. Transverse band of sclerosis with cortical irregularity of the distal right fibula. This represents an age indeterminate fracture. 3. Subtle acute avulsion fracture of the proximal cuboid. 4. Right ankle and foot soft tissue swelling. ACT 112: Negative or not required by law. Electronically signed by: Dominic Sutton M.D. 02/28/2021 3:22 PM Opioid Risk Assessment Opioid Risk Assessment: risk assessment performed and no issues identified
[2021-03-09] MEDS ORDERED: PANTOprazole 40 MG TAB PO SCH (09:00)
[2021-03-09] MEDS: MAGNESIUM OXIDE 400 MG TAB PO SCH (09:04)
[2021-03-09] MEDS: FLUoxetine HCL 10 MG CAP PO SCH ×2 (09:04→20:46)
[2021-03-09] MEDS: CALCIUM CARBONATE 1250MG TAB PO SCH ×2 (09:04→20:45)
[2021-03-09] MEDS: ASPIRIN 81 MG ECTAB PO SCH (09:04)
[2021-03-09] MEDS: predniSONE 2.5 MG TAB PO SCH ×2 (09:04→20:46)
[2021-03-09] MEDS: POLYETHYLENE (MIRALAX) 17 GM PACK PO SCH (09:05)
[2021-03-09] MEDS: PREGABALIN 150 MG CAP PO SCH ×3 (09:05→20:50)
[2021-03-09] MEDS: ACETAMINOPHEN 500 MG TAB PO SCH ×3 (09:05→20:49)
--- NOTE | 2021-03-09 09:08 | Orthopedic Consultation ---
Date of Consultation March 09, 2021 Assessment & Plan (1) Cervical spine fracture: Assessment patient did sustain a C7 compression fracture with retropulsion of some bony material into the canal. MRI does demonstrate evidence of the fracture but no evidence of cord or neural compression. Clinically she demonstrates no evidence of cord irritation or compression. I strongly suspect we will be able to manage this nonoperatively with a [place] J collar. She may remove this collar to eat and brush her teeth. Otherwise she should have this on at all times. History of Present Illness Reason for Consultation: Cervical spine fracture Attending Physician: Mitch Mckeon DO History of Present Illness This is an 85-year-old female presents yesterday after a fall while trying to go to a orthopedic appointment regarding an ankle fracture. Unfortunately she sustained a fracture to the cervical spine from this fall. She was subsequently admitted for observation. This morning she notes some soreness to the cervical spine. She denies any swallowing issues. Denies any upper or lower extremities numbness tingling or pain. Allergies Allergy/AdvReac Type Severity Reaction Status Date / Time morphine Allergy Unknown DIZZINESS Verified 03/08/21 11:08 nickel Allergy Unknown EARS GET Verified 03/08/21 11:08 SORE FROM EARRINGS WITH NICKEL Penicillins Allergy Unknown RASH Verified 03/08/21 11:08 soy Allergy Unknown HEADACHE Verified 03/08/21 11:08 Home Medications Medication Instructions Recorded Confirmed Type etodolac 200 mg capsule 200 mg PO Q12H PRN #14 cap 02/28/21 03/08/21 Rx albuterol sulfate 2.5 mg INHALATION DAILY PRN 03/08/21 03/08/21 History aspirin 81 mg capsule 81 mg PO DAILY 03/08/21 03/08/21 History budesonide-formoterol HFA 160 2 puff INHALATION BID PRN 03/08/21 03/08/21 History mcg-4.5 mcg/actuation aerosol inhaler (Symbicort) calcium carbonate 500 mg calcium 1,000 mg PO BID 03/08/21 03/08/21 History (1,250 mg) tablet (Calcium 500) dexlansoprazole 60 mg 60 mg PO DAILY 03/08/21 03/08/21 History capsule,biphase delayed release (Dexilant) duloxetine 60 mg capsule,delayed 60 mg PO HS 03/08/21 03/08/21 History release fesoterodine 4 mg tablet,extended 4 mg PO DAILY 03/08/21 03/08/21 History release 24 hr (Toviaz) fluoxetine 20 mg capsule 10 mg PO BID 03/08/21 03/08/21 History ipratropium bromide 21 mcg (0.03 2 spray INTRANASAL BID PRN 03/08/21 03/08/21 History %) nasal spray levothyroxine 75 mcg tablet 75 mcg PO DAILY 03/08/21 03/08/21 History lifitegrast 5 % eye drops in a 1 drp OPHTHALMIC (EYE) BID PRN 03/08/21 03/08/21 History dropperette (Xiidra) magnesium 200 mg tablet 1,200 mg PO DAILY 03/08/21 03/08/21 History methocarbamol 750 mg tablet 1,500 mg PO TID 03/08/21 03/08/21 History pramipexole 1 mg tablet 2 mg PO HS 03/08/21 03/08/21 History prednisone 5 mg tablet 2.5 mg PO BID 03/08/21 03/08/21 History pregabalin 150 mg capsule 150 mg PO TID 03/08/21 03/08/21 History tapentadol 50 mg tablet (Nucynta) 50 mg PO TID 03/08/21 03/08/21 History Patient History Medical History Anxiety Depression Fibromyalgia GERD (gastroesophageal reflux disease) Hypothyroidism Rheumatoid arthritis Surgical History H/O total hip arthroplasty H/O total knee replacement H/O: hysterectomy History of lumbar fusion History of partial nephrectomy Family History Other No pertinent family history Social History Smoking Status: Never smoker Second Hand Exposure: No; Do You Dip or Chew Tobacco: No; Tobacco Cessation Education Requested by Patient: No Hx Alcohol Use: No Hx Substance Use: No Preferred Language: Filipino Communication Ability: Effective Associate Embalmer/Funeral Director Required: No Beliefs That Will Affect Care: None Current Living Situation: Other current occupational status: retired Other Information That Helps Us Care for You: No Feels Safe at Home: Yes Safety Concerns: Feels Safe At This Time Assistive Devices: None Physical Exam Physical Exam: Patient is in bed at this time. She is wearing a [place] J collar. I did remove the collar. And palpation of the cervical spine does not demonstrate some the discomfort. She does however demonstrate excellent strength to detailed testing the upper and lower extremities. Sensory appears to be symmetric and intact. Results & Data ([facility]) Vital Signs (Past 12 Hours) Vital Signs Temp Pulse Pulse Resp BP Pulse Ox 03/09/21 08:00 36.4 C L 85 20 147/73 H 90 03/09/21 03:35 36.5 C 84 18 135/73 90 03/08/21 22:29 36.5 C 81 18 160/57 H 91 03/08/21 22:18 85
[2021-03-09] MEDS: TAPENTADOL HCL 50 MG TAB PO PRN (11:15)
--- NOTE | 2021-03-09 16:57 | Hospitalist Progress Note ---
Date of Service March 09, 2021 Assessment & Plan (1) Cervical spine fracture: Plan: -Seen by deaf/hard of hearing specialist who believes this can be managed nonoperatively with a [place] J collar--appreciate recommendations -Per orthopedics, patient may take collar off to eat and pressure teeth -Goal is for adequate pain control (seems to be controlled with Nucynta). Patient had been seen by pain management who agrees with this plan. Will increase dose if needed -Consult PT/OT. May need short-term rehab (2) Multiple falls: Plan: Multifactorial including arthritis, peripheral neuropathy, iatrogenic (Nucynta, Lyrica, Diazepam, methocarbamol), lumbar spinal stenosis This most recent fall seems to be mostly in part due to her weightbearing restrictions to the right lower extremity PT/OT (3) Closed fracture of heel bone: Plan: Toe touch weight bearing on right foot per last ortho note recommendations Given uncontrolled pain from this possibly contributing towards fall and limited options of pain killers will consult pain management to help with this (4) Cuboid fracture: Plan: As above (5) GERD (gastroesophageal reflux disease): Plan: Switch Dexilant for pantoprazole per hospital formulary (6) Fibromyalgia: Plan: Continue Lyrica and chronic pain medications with Nucynta (7) Depression: Plan: Continue fluoxetine 10mg PO daily and duloxetine 60mg PO HS (8) Rheumatoid arthritis: Plan: Continue chronic prednisone use 2.5mg PO BID Continue her chronic pain medications with Nucytna (9) Hypothyroidism: Plan: TSH 7.82. In setting of acute fall would not adjust her levothyroxine dosing (euthyroid sick? )-- Repeat in 4-6 weeks. (10) Restless leg syndrome: Plan: Continue pramipexole 2mg PO HS Iron studies in AM (11) Lumbar stenosis with neurogenic claudication: Plan: Noted recent surgery for this ?cause of neuropathy. (12) Overactive bladder: Plan: Continue Toviaz 4mg PO daily (13) Asthma: Plan: Unknown severity. Continue Symbicort 2 puff BID or hospital formulary equivalent. Plan: -Add incentive spirometry due to eighth rib fracture and risk for atelectasis with progression to pneumonia. -Plan of care discussed with Dr. Mckeon. Further orders as warranted. Admission and Anticipated Discharge Date Admission Date: March 08, 2021 Subjective Patient seen on daily rounds today. She is an 85-year-old white female who was hospitalized with a cervical fracture following a fall. She has a history of fibromyalgia, hypothyroidism, RLS, overactive bladder, asthma, rheumatoid arthritison chronic prednisone and Nucynta, chronic opioid therapy. She recently moved from [place] to live with her sister as her sister's and her sister requires a caregiver. Had a fall several weeks ago resulting in a crush calcaneal fracture. Is following Ortho for this. Is toe- touch weightbearing to the right lower extremity and is wearing a boot. While walking into the orthopedic office yesterday, was having difficulty opening the door with the weightbearing restrictions to the right lower extremity and she sustained a ground-level fall. This resulted in a C7 compression fracture with 25% loss of height and 3 mm retropulsion. In addition, she has a new eighth rib fracture. An MRI was done to further evaluate the fracture. There is bony material noted to be in the canal; however, no evidence of cord or neural compre ssion. Seen by neurology who believes that this could be managed nonoperatively in a [facility]. Patient currently on Nucynta for pain control. Pain seems to be adequately controlled. Again, lives in a one-story home with her sister (she is the caregiver for her sister). She does not believe that she would be able to manage at home in this condition. PT/OT pending. Review of Systems Review of Systems: All systems reviewed and are unremarkable except as noted in HPI and below Denies fevers, chills, headache, nasal congestion, sore throat, cough, chest pain, shortness of breath, palpitations, orthopnea, PND, abdominal pain, nausea, vomiting, diarrhea, constipation, dysuria, hematuria, frequency, back pain, joint pain or swelling, easy bruising or bleeding, skin lesions or rashes. Physical Exam Physical Exam: General: Resting comfortably in his/her hospital bed/bedside chair. NAD. HEENT: Head is AT/NC. cervical collar in place Neck: No JVD. Negative hepatojugular reflex Cardiac: RRR without M/G/R Lungs: CTA without W/R/R Abdomen: Normoactive X4. Soft and nontender in all quadrants. Extremities: Boot noted to right lower extremity. Capillary refill +2. peripheral pulses intact and symmetrical. Neuro: A&O X4 cranial nerves II through XII are grossly intact no focal neuro deficits Skin: No obvious skin lesions or rashes Psych: Appropriate affect pleasant and cooperative Results & Data Results & Data ([facility]) Vital Signs (Past 12 Hours) Vital Signs Temp Pulse Pulse Resp BP Pulse Ox 03/09/21 16:06 61 03/09/21 15:21 36.6 C 83 20 120/68 92 03/09/21 11:16 36.5 C 83 20 117/67 93 03/09/21 08:00 36.4 C L 85 20 147/73 H 90 03/09/21 07:00 83 Laboratory Results 03/09/21 06:09 03/09/21 06:09 PG Care Time/CCT Total # of Minutes Spent Total Time Spent with Patient: Total time spent is greater than 50% in coordination of care (as documented) at patient's floor/unit and/or counseling patient: Coding Level of Care Code 53908 Subseq Hosp Care Lvl 2 Diagnoses Multiple falls R29.6 Cervical spine fracture S12.9XXA Closed fracture of heel bone S92.001A Calcaneus location: unspecified portion of calcaneus Encounter type: initial encounter Fracture alignment: nondisplaced Laterality: right Cuboid fracture S92.214A Encounter type: initial encounter Fracture alignment: nondisplaced Fracture type: closed Laterality: right GERD (gastroesophageal reflux disease) K21.9 Fibromyalgia M79.7 Depression F32.9 Rheumatoid arthritis M06.9 Hypothyroidism E03.9 Restless leg syndrome G25.81 Lumbar stenosis with neurogenic claudication M48.062 Overactive bladder N32.81 Asthma J45.909 (1) Closed fracture of heel bone Calcaneus location: unspecified portion of calcaneus Encounter type: initial encounter Fracture alignment: nondisplaced Laterality: right Qualified Code(s): S92.001A - Unspecified fracture of right calcaneus, initial encounter for closed fracture (2) Cuboid fracture Encounter type: initial encounter Fracture alignment: nondisplaced Fracture type: closed Laterality: right Qualified Code(s): S92.214A - Nondisplaced fracture of cuboid bone of right foot, initial encounter for closed fracture
[2021-03-09] MEDS: DULoxetine HCL 60 MG CAP PO SCH (20:46)
[2021-03-09] MEDS: FAMOTIDINE 20 MG TAB PO SCH (20:46)
[2021-03-09] MEDS: PRAMIPEXOLE DIHYDROCHLO 0.5 MG TAB PO SCH (20:47)
[2021-03-10] MEDS: LEVOTHYROXINE SODIUM 75 MCG TABLET PO SCH (06:03)
[2021-03-10] MEDS: CALCIUM CARBONATE 1250MG TAB PO SCH ×2 (08:37→19:47)
[2021-03-10] MEDS: predniSONE 2.5 MG TAB PO SCH ×2 (08:37→19:47)
[2021-03-10] MEDS: FAMOTIDINE 20 MG TAB PO SCH ×2 (08:37→19:47)
[2021-03-10] MEDS: MAGNESIUM OXIDE 400 MG TAB PO SCH (08:37)
[2021-03-10] MEDS: FLUoxetine HCL 10 MG CAP PO SCH ×2 (08:37→19:47)
[2021-03-10] MEDS: CHOLECALCIFEROL 1,000 UNITS 25 MCG TAB PO SCH (08:37)
[2021-03-10] MEDS: TOVIAZ - ORDER AWAITING ACTION SCH ×2 (08:38→16:10)
[2021-03-10] MEDS: PREGABALIN 150 MG CAP PO SCH ×3 (08:41→19:46)
[2021-03-10] MEDS: ACETAMINOPHEN 500 MG TAB PO SCH (08:41)
[2021-03-10] MEDS: POLYETHYLENE (MIRALAX) 17 GM PACK PO SCH (08:42)
[2021-03-10] MEDS: ASPIRIN 81 MG ECTAB PO SCH (09:17)
--- NOTE | 2021-03-10 09:51 | Orthopedic Progress Note ---
Date of Service March 10, 2021 Assessment & Plan (1) C7 cervical fracture: Plan: At this time we will maintain the cervical collar at all times with the exception of eating and brushing her teeth. I encouraged her to transfer to the chair today. She ultimately would be a an excellent candidate for rehab placement in the next day or so. Admission and Anticipated Discharge Date Admission Date: March 08, 2021 Subjective Patient's neck pain is controlled. She denies any numbness or tingling to the upper or lower extremities. She is not gotten out of bed since admission. Physical Exam Physical Exam: Collar is in place. She has good strength testing upper extremities. Sensory symmetric and intact. Results & Data ([facility]) Vital Signs (Past 12 Hours) Vital Signs Temp Pulse Pulse Pulse Resp BP Pulse Ox 03/10/21 08:15 36.4 C L 84 20 178/73 H 92 03/10/21 08:00 79 03/09/21 23:53 36.7 C 79 18 146/73 H 90 03/09/21 23:44 79 (1) C7 cervical fracture Encounter type: initial encounter Fracture alignment: nondisplaced Fracture morphology: unspecified fracture morphology Fracture type: closed Qualified Code(s): S12.601A - Unspecified nondisplaced fracture of seventh cervical vertebra, initial encounter for closed fracture
[2021-03-10] MEDS: TAPENTADOL HCL 50 MG TAB PO SCH ×2 (13:32→20:04)
--- NOTE | 2021-03-10 16:23 | Hospitalist Progress Note ---
Date of Service March 10, 2021 Assessment & Plan (1) Cervical spine fracture: Plan: -Seen by operations specialist (Dr. Larson) who believes this can be managed nonoperatively with a [place] J collar--appreciate recommendations -Per orthopedics, patient may take collar off to eat and pressure teeth -Goal is for adequate pain control -Patient takes Nucynta short acting 3 times a day. Upon further review, seems to be prescribed as needed here -Lengthy discussion with pharmacy about changing this to long-acting; however, there is concerned that this will not be continued upon discharge (as patient already on short acting). Seen by pain management who recommended continuation of the Nucynta as prior to hospitalization -Follow-up with PCP who can transition to long-acting if needed upon discharge -PT/OT on board. Will require short-term rehab. Case management consulted. Referrals made to [facility], [facility], and [place] (2) Left rib fracture: Plan: incentive spirometry due to eighth rib fracture and risk for atelectasis with progression to pneumonia. (3) Multiple falls: Plan: Multifactorial including arthritis, peripheral neuropathy, iatrogenic (Nucynta, Lyrica, Diazepam, methocarbamol), lumbar spinal stenosis This most recent fall seems to be mostly in part due to her weightbearing restrictions to the right lower extremity PT/OT (4) Closed fracture of heel bone: Plan: Toe touch weight bearing on right foot per last ortho note recommendations (5) Cuboid fracture: Plan: As above (6) GERD (gastroesophageal reflux disease): Plan: Switch Dexilant for pantoprazole per hospital formulary (7) Fibromyalgia: Plan: Continue Lyrica and chronic pain medications with Nucynta (8) Depression: Plan: Continue fluoxetine 10mg PO daily and duloxetine 60mg PO HS (9) Rheumatoid arthritis: Plan: Continue chronic prednisone use 2.5mg PO BID Continue her chronic pain medications with Nucytna (10) Hypothyroidism: Plan: TSH 7.82. In setting of acute fall would not adjust her levothyroxine dosing (euthyroid sick? )-- Repeat in 4-6 weeks. (11) Restless leg syndrome: Plan: Continue pramipexole 2mg PO HS Iron studies in AM (12) Lumbar stenosis with neurogenic claudication: Plan: Noted recent surgery for this ?cause of neuropathy. (13) Overactive bladder: Plan: Continue Toviaz 4mg PO daily (14) Asthma: Plan: Unknown severity. Continue Symbicort 2 puff BID or hospital formulary equivalent. Plan: -Plan of care discussed with Dr. Mckeon. Further orders as warranted. Admission and Anticipated Discharge Date Admission Date: March 10, 2021 Subjective Patient seen under the rounds today. Is having pain in her neck but reports it is controlled with the Nucynta. Upon further review, her Nucynta is being given as needed. She takes this routinely at home. She is on short acting 3 times a day. I did reach out to pharmacy to discuss changing this to long-acting who agrees that would likely be ideal; however, there is concern whenever patient is discharged that she would not have a provider to continue prescribing this. She has been seen by both PT and OT and the plan is for placement for short-term rehab. Patient denies fevers, chills, chest pain, shortness of breath, abdominal pain, nausea or vomiting. She is moving her bowels without any difficulty. Review of Systems Review of Systems: All systems reviewed and are unremarkable except as noted in HPI and below + Neck pain. Denies fevers, chills, headache, nasal congestion, sore throat, cough, chest pain, shortness of breath, palpitations, orthopnea, PND, abdominal pain, nausea, vomiting, diarrhea, constipation, dysuria, hematuria, frequency, back pain, joint pain or swelling, easy bruising or bleeding, skin lesions or rashes. Physical Exam Physical Exam: General: Resting comfortably in her hospital bed. She appears comfortable at present. NAD. HEENT: Cervical collar in place. Buccal mucosa is moist and pink Neck: No JVD. Negative hepatojugular reflex Cardiac: RRR without M/G/R Lungs: CTA without W/R/R Abdomen: Normoactive X4. Soft and nontender in all quadrants. Extremities: No peripheral clubbing cyanosis or edema Neuro: A&O X4 cranial nerves II through XII are grossly intact no focal neuro deficits Skin: No obvious skin lesions or rashes Psych: Appropriate affect pleasant and cooperative Results & Data Results & Data ([facility]) Vital Signs (Past 12 Hours) Vital Signs Temp Pulse Pulse Resp BP Pulse Ox 03/10/21 16:14 36.7 C 84 18 136/76 95 03/10/21 11:38 36.7 C 86 18 138/68 94 03/10/21 08:15 36.4 C L 84 20 178/73 H 92 03/10/21 08:00 79 Laboratory Results 03/09/21 06:09 03/09/21 06:09 PG Care Time/CCT Total # of Minutes Spent Total Time Spent with Patient: Total time spent is greater than 50% in coordination of care (as documented) at patient's floor/unit and/or counseling patient: Coding Level of Care Code 43662 Subseq Hosp Care Lvl 2 Diagnoses Cervical spine fracture S12.9XXA Multiple falls R29.6 Closed fracture of heel bone S92.001A Calcaneus location: unspecified portion of calcaneus Encounter type: initial encounter Fracture alignment: nondisplaced Laterality: right Cuboid fracture S92.214A Encounter type: initial encounter Fracture alignment: nondisplaced Fracture type: closed Laterality: right GERD (gastroesophageal reflux disease) K21.9 Fibromyalgia M79.7 Depression F32.9 Rheumatoid arthritis M06.9 Hypothyroidism E03.9 Restless leg syndrome G25.81 Lumbar stenosis with neurogenic claudication M48.062 Overactive bladder N32.81 Asthma J45.909 Left rib fracture S22.32XA Encounter type: initial encounter Fracture type: closed Rib fracture type: single rib (1) Closed fracture of heel bone Calcaneus location: unspecified portion of calcaneus Encounter type: initial encounter Fracture alignment: nondisplaced Laterality: right Qualified Code(s): S92.001A - Unspecified fracture of right calcaneus, initial encounter for closed fracture (2) Cuboid fracture Encounter type: initial encounter Fracture alignment: nondisplaced Fracture type: closed Laterality: right Qualified Code(s): S92.214A - Nondisplaced fracture of cuboid bone of right foot, initial encounter for closed fracture (3) Left rib fracture Encounter type: initial encounter Fracture type: closed Rib fracture type: single rib Qualified Code(s): S22.32XA - Fracture of one rib, left side, i nitial encounter for closed fracture
[2021-03-10] MEDS: PRAMIPEXOLE DIHYDROCHLO 0.5 MG TAB PO SCH (19:46)
[2021-03-10] MEDS: DULoxetine HCL 60 MG CAP PO SCH (19:47)
[2021-03-10] MEDS: ACETAMINOPHEN 500 MG TAB PO PRN (20:51)
[2021-03-11] MEDS: TOVIAZ - ORDER AWAITING ACTION SCH ×3 (02:27→15:54)
[2021-03-11] MEDS: LEVOTHYROXINE SODIUM 75 MCG TABLET PO SCH (06:29)
[2021-03-11] MEDS: ACETAMINOPHEN 500 MG TAB PO PRN (06:29)
[2021-03-11] MEDS: FAMOTIDINE 20 MG TAB PO SCH ×3 (06:31→20:33)
[2021-03-11] MEDS ORDERED: Nursing to Pharmacy Communication SCH (06:45)
[2021-03-11] MEDS: ASPIRIN 81 MG ECTAB PO SCH (09:37)
[2021-03-11] MEDS: MAGNESIUM OXIDE 400 MG TAB PO SCH (09:37)
[2021-03-11] MEDS: predniSONE 2.5 MG TAB PO SCH ×2 (09:37→20:33)
[2021-03-11] MEDS: FLUoxetine HCL 10 MG CAP PO SCH ×2 (09:37→20:33)
[2021-03-11] MEDS: CALCIUM CARBONATE 1250MG TAB PO SCH ×2 (09:38→20:34)
[2021-03-11] MEDS: PREGABALIN 150 MG CAP PO SCH ×3 (09:38→20:32)
[2021-03-11] MEDS: TAPENTADOL HCL 50 MG TAB PO SCH (09:38)
[2021-03-11] MEDS: CHOLECALCIFEROL 1,000 UNITS 25 MCG TAB PO SCH (09:38)
[2021-03-11] MEDS: POLYETHYLENE (MIRALAX) 17 GM PACK PO SCH (09:39)
[2021-03-11] MEDS ORDERED: predniSONE 2.5 MG TAB PO STA (11:26)
[2021-03-11] MEDS: LIDOCAINE 5% 1 PATCH TD SCH (12:42)
--- NOTE | 2021-03-11 17:02 | Hospitalist Progress Note ---
Date of Service March 11, 2021 Assessment & Plan (1) Cervical spine fracture: Plan: -Seen by insurance sales specialist (Dr. Larson) who believes this can be managed nonoperatively with a [place] J collar--appreciate recommendations -Per orthopedics, patient may take collar off to eat and pressure teeth -Goal is for adequate pain control -Currently Nucynta is on board scheduled and causing excessive sedation. We will change his back to as needed -Pain management was consulted and agreed with continuation of the Nucynta. May uptitrate if needed but patient reports pain is adequately controlled with this and Tylenol -PT/OT on board. Will require short-term rehab. Case management on board. [facility] and [place] (2) Left rib fracture: Plan: incentive spirometry due to eighth rib fracture and risk for atelectasis with progression to pneumonia. -Add Lidoderm patch (3) Multiple falls: Plan: Multifactorial including arthritis, peripheral neuropathy, iatrogenic (Nucynta, Lyrica, Diazepam, methocarbamol), lumbar spinal stenosis This most recent fall seems to be mostly in part due to her weightbearing restrictions to the right lower extremity PT/OT (4) Closed fracture of heel bone: Plan: Toe touch weight bearing on right foot per last ortho note recommendations (5) Cuboid fracture: Plan: As above (6) GERD (gastroesophageal reflux disease): Plan: Continue Dexilant (7) Fibromyalgia: Plan: Continue Lyrica and chronic pain medications with Nucynta (8) Depression: Plan: Continue fluoxetine 10mg PO daily and duloxetine 60mg PO HS (9) Rheumatoid arthritis: Plan: Patient was prescribed prednisone 2.5 mg twice daily (as this was listed on her home med list) She reports that she takes 5 mg in the morning and2.5 in the evening. This will be changed to reflect correct prehospital dosing (10) Hypothyroidism: Plan: TSH 7.82. In setting of acute fall would not adjust her levothyroxine dosing (euthyroid sick? )-- Repeat in 4-6 weeks. (11) Restless leg syndrome: Plan: Continue pramipexole 2mg PO HS Iron studies in AM (12) Lumbar stenosis with neurogenic claudication: Plan: Noted recent surgery for this ?cause of neuropathy. (13) Overactive bladder: Plan: Continue Toviaz 4mg PO daily (14) Asthma: Plan: Unknown severity. Continue Symbicort 2 puff BID or hospital formulary equivalent. Plan: -Plan of care discussed with Dr. Mckeon. Further orders as warranted. Admission and Anticipated Discharge Date Admission Date: March 10, 2021 Subjective Patient seen on daily rounds today. Yesterday her Nucynta was made routine to reflect how she was taking it at home. She admits today that she was not necessarily taking it 3 times routine as it occasionally made her drowsy. She is feeling excessively somnolent with the routine Nucynta. Her neck pain seems to be controlled. The biggest pain that she is having today seems to be in her rib. Therapy on board awaiting placement Review of Systems Review of Systems: All systems reviewed and are unremarkable except as noted in HPI and below Denies fevers, chills, headache, nasal congestion, sore throat, cough, chest pain, shortness of breath, palpitations, orthopnea, PND, abdominal pain, nausea, vomiting, diarrhea, constipation, dysuria, hematuria, frequency, back pain, joint pain or swelling, easy bruising or bleeding, skin lesions or rashes. Physical Exam Physical Exam: General: Resting comfortably in her hospital bed. Cervical collar in place. NAD. HEENT: Head is AT/NC buccal mucosa is moist and pink Neck: Cervical collar in place Cardiac: RRR Lungs: CTA without W/R/R Abdomen: Normoactive X4. Soft and nontender in all quadrants. Extremities: Boot noted to right lower extremity Neuro: A&O X4 cranial nerves II through XII are grossly intact no focal neuro deficits Skin: No obvious skin lesions or rashes Psych: Appropriate affect pleasant and cooperative Results & Data Results & Data ([facility]) Vital Signs (Past 12 Hours) Vital Signs Temp Pulse Resp BP BP Pulse Ox 03/11/21 16:09 36.5 C 84 16 159/76 H 97 03/11/21 08:00 36.7 C 80 16 146/77 H 95 Laboratory Results No lab data PG Care Time/CCT Total # of Minutes Spent Total Time Spent with Patient: Total time spent is greater than 50% in coordination of care (as documented) at patient's floor/unit and/or counseling patient: Coding Level of Care Code 56810 Subseq Hosp Care Lvl 2 Diagnoses Cervical spine fracture S12.9XXA Left rib fracture S22.32XA Encounter type: initial encounter Fracture type: closed Rib fracture type: single rib Multiple falls R29.6 Closed fracture of heel bone S92.001A Calcaneus location: unspecified portion of calcaneus Encounter type: initial encounter Fracture alignment: nondisplaced Laterality: right Cuboid fracture S92.214A Encounter type: initial encounter Fracture alignment: nondisplaced Fracture type: closed Laterality: right GERD (gastroesophageal reflux disease) K21.9 Fibromyalgia M79.7 Depression F32.9 Rheumatoid arthritis M06.9 Hypothyroidism E03.9 Restless leg syndrome G25.81 Lumbar stenosis with neurogenic claudication M48.062 Overactive bladder N32.81 Asthma J45.909 (1) Left rib fracture Encounter type: initial encounter Fracture type: closed Rib fracture type: single rib Qualified Code(s): S22.32XA - Fracture of one rib, left side, initial encounter for closed fracture (2) Closed fracture of heel bone Calcaneus location: unspecified portion of calcaneus Encounter type: initial encounter Fracture alignment: nondisplaced Laterality: right Qualified Code(s): S92.001A - Unspecified fracture of right calcaneus, initial encounter for closed fracture (3) Cuboid fracture Encounter type: initial encounter Fracture alignment: nondisplaced Fracture type: closed Laterality: right Qualified Code(s): S92.214A - Nondisplaced fracture of cuboid bone of right foot, initial encounter for closed fracture
[2021-03-11] MEDS: TAPENTADOL HCL 50 MG TAB PO PRN (20:32)
[2021-03-11] MEDS: PRAMIPEXOLE DIHYDROCHLO 0.5 MG TAB PO SCH (20:33)
[2021-03-11] MEDS: DULoxetine HCL 60 MG CAP PO SCH (20:34)
[2021-03-12] MEDS: TOVIAZ - ORDER AWAITING ACTION SCH ×2 (00:53→08:47)
[2021-03-12] MEDS: LEVOTHYROXINE SODIUM 75 MCG TABLET PO SCH (06:08)
[2021-03-12] MEDS: FAMOTIDINE 20 MG TAB PO SCH ×2 (06:09→21:32)
[2021-03-12] MEDS: POLYETHYLENE (MIRALAX) 17 GM PACK PO SCH (08:42)
[2021-03-12] MEDS: ASPIRIN 81 MG ECTAB PO SCH (08:42)
[2021-03-12] MEDS: CALCIUM CARBONATE 1250MG TAB PO SCH ×2 (08:43→21:32)
[2021-03-12] MEDS: CHOLECALCIFEROL 1,000 UNITS 25 MCG TAB PO SCH (08:43)
[2021-03-12] MEDS: predniSONE 5 MG TAB PO SCH (08:43)
[2021-03-12] MEDS: MAGNESIUM OXIDE 400 MG TAB PO SCH (08:43)
[2021-03-12] MEDS: FLUoxetine HCL 10 MG CAP PO SCH ×2 (08:43→21:32)
[2021-03-12] MEDS: LIDOCAINE 5% 1 PATCH TD SCH (08:44)
[2021-03-12] MEDS: PREGABALIN 150 MG CAP PO SCH ×3 (08:50→21:31)
--- NOTE | 2021-03-12 09:17 | Hospitalist Progress Note ---
Date of Service March 12, 2021 Assessment & Plan (1) Cervical spine fracture: Plan: -C7 vertebra endplate compression with 3mm retropulsion without central canal stenosis Seen by therapeutic specialist (Dr. Larson) who believes this can be managed nonoperatively with a [place] J collar--appreciate recommendations -Per orthopedics, patient may take collar off to eat and pressure teeth -Goal is for adequate pain control -Currently Nucynta is on board scheduled and causing excessive sedation. We will change his back to as needed -Pain management was consulted and agreed with continuation of the Nucynta. May uptitrate if needed but patient reports pain is adequately controlled with this and Tylenol -PT/OT on board. Will require short-term rehab. Case management on board. Referrals made to [facility], [facility], and [place] (2) Left rib fracture: Plan: incentive spirometry encouraged due to splinting secondary to eighth rib fracture and risk for atelectasis with progression to pneumonia. -Add Lidoderm patch (3) Multiple falls: Plan: Multifactorial including arthritis, peripheral neuropathy, iatrogenic (Nucynta, Lyrica, Diazepam, methocarbamol), lumbar spinal stenosis This most recent fall seems to be mostly in part due to her weightbearing restrictions to the right lower extremity PT/OT (4) Closed fracture of heel bone: Plan: right sided , distal fibulae and calcaneal heel fracture, in addition to small cuboid avulsion, per ortho Toe touch weight bearing on right foot per last ortho note recommendations (5) Cuboid fracture: Plan: As above (6) GERD (gastroesophageal reflux disease): Plan: Continue Dexilant (7) Fibromyalgia: Plan: Continue Lyrica and chronic pain medications with Nucynta (8) Depression: Plan: Continue fluoxetine 10mg PO daily and duloxetine 60mg PO HS (9) Rheumatoid arthritis: Plan: Patient was prescribed prednisone 2.5 mg twice daily (as this was listed on her home med list) She reports that she takes 5 mg in the morning and2.5 in the evening. This will be changed to reflect correct prehospital dosing (10) Hypothyroidism: Plan: TSH 7.82. In setting of acute fall would not adjust her levothyroxine dosing (euthyroid sick? )-- Repeat in 4-6 weeks. (11) Restless leg syndrome: Plan: Continue pramipexole 2mg PO HS Iron studies in AM (12) Lumbar stenosis with neurogenic claudication: Plan: Noted recent surgery for this ?cause of neuropathy. (13) Overactive bladder: Plan: Continue Toviaz 4mg PO daily (14) Asthma: Plan: Unknown severity. Continue Symbicort 2 puff BID or hospital formulary equivalent. Plan: - Admission and Anticipated Discharge Date Admission Date: March 10, 2021 Subjective pt is doing well, has fair pain control, is awaiting placement Review of Systems Review of Systems: Mild distress and fatigue no headache, no visual changes controlled neck pain without radicular pain no speech or swallowing issues no chest pain, pressure or palpitations no shortness of breath, cough or wheezes no abdominal pain, nausea or vomiting, diarrhea or constipation no dysuria, hematuria or frequency right ankle foot pain with boot on no back pain, CVA tenderness or radicular pain no bruising, bleeding or rashes no focal signs of weakness or numbness or altered sensation no complaints of anxiety or depression.. Physical Exam Physical Exam: [place] j collar in place cardiac is regular lungs are clear boot in place on right foot with distal sensation intact Results & Data Results & Data ([facility]) Vital Signs (Past 12 Hours) Vital Signs Temp Pulse Pulse Resp BP BP Pulse Ox 03/12/21 07:31 97.7 F 81 16 155/83 H 94 03/11/21 22:12 98.4 F 83 16 118/74 95 PG Care Time/CCT Total # of Minutes Spent Total Time Spent with Patient: Total time spent is greater than 50% in coordination of care (as documented) at patient's floor/unit and/or counseling patient: Coding Level of Care Code 45477 Subseq Hosp Care Lvl 1 Diagnoses Cervical spine fracture S12.9XXA Left rib fracture S22.32XA Encounter type: initial encounter Fracture type: closed Rib fracture type: single rib Multiple falls R29.6 Closed fracture of heel bone S92.001A Calcaneus location: unspecified portion of calcaneus Encounter type: initial encounter Fracture alignment: nondisplaced Laterality: right Cuboid fracture S92.214A Encounter type: initial encounter Fracture alignment: nondisplaced Fracture type: closed Laterality: right GERD (gastroesophageal reflux disease) K21.9 Fibromyalgia M79.7 Depression F32.9 Rheumatoid arthritis M06.9 Hypothyroidism E03.9 Restless leg syndrome G25.81 Lumbar stenosis with neurogenic claudication M48.062 Overactive bladder N32.81 Asthma J45.909 (1) Left rib fracture Encounter type: initial encounter Fracture type: closed Rib fracture type: single rib Qualified Code(s): S22.32XA - Fracture of one rib, left side, initial encounter for closed fracture (2) Closed fracture of heel bone Calcaneus location: unspecified portion of calcaneus Encounter type: initial encounter Fracture alignment: nondisplaced Laterality: right Qualified Code(s): S92.001A - Unspecified fracture of right calcaneus, initial encounter for closed fracture (3) Cuboid fracture Encounter type: initial encounter Fracture alignment: nondisplaced Fracture type: closed Laterality: right Qualified Code(s): S92.214A - Nondisplaced fracture of cuboid bone of right foot, initial encounter for closed fracture
--- NOTE | 2021-03-12 10:31 | Orthopedic Progress Note ---
Date of Service March 12, 2021 Assessment & Plan (1) C7 cervical fracture: Plan: This time and asked that she maintain her cervical collar at all times with the exception of eating face washing and brushing her teeth. She will follow-up in my office the next week or 2 to update x-rays of the cervical spine. Admission and Anticipated Discharge Date Admission Date: March 10, 2021 Subjective Patient's neck pain is controlled. She denies any numbness or tingling to the upper or lower extremities. Physical Exam Physical Exam: She does appear comfortable. Collar is in place. She has good strength testing the upper extremities. Results & Data ([facility]) Vital Signs (Past 12 Hours) Vital Signs Temp Pulse Resp BP Pulse Ox 03/12/21 07:31 36.5 C 81 16 155/83 H 94 (1) C7 cervical fracture Encounter type: initial encounter Fracture alignment: nondisplaced Fracture morphology: unspecified fracture morphology Fracture type: closed Qualified Code(s): S12.601A - Unspecified nondisplaced fracture of seventh cervical vertebra, initial encounter for closed fracture
[2021-03-12] MEDS: TAPENTADOL HCL 50 MG TAB PO PRN ×2 (14:46→21:31)
[2021-03-12] MEDS: predniSONE 2.5 MG TAB PO SCH (21:32)
[2021-03-12] MEDS: DULoxetine HCL 60 MG CAP PO SCH (21:32)
[2021-03-12] MEDS: PRAMIPEXOLE DIHYDROCHLO 0.5 MG TAB PO SCH (21:32)
[2021-03-12] MEDS: FESOTERODINE FUMARATE 4 MG PO SCH (21:33)
[2021-03-13] MEDS: FAMOTIDINE 20 MG TAB PO SCH ×2 (06:28→20:44)
[2021-03-13] MEDS: LEVOTHYROXINE SODIUM 75 MCG TABLET PO SCH (06:28)
[2021-03-13] MEDS: PREGABALIN 150 MG CAP PO SCH ×3 (09:23→20:50)
[2021-03-13] MEDS: MAGNESIUM OXIDE 400 MG TAB PO SCH (09:23)
[2021-03-13] MEDS: CHOLECALCIFEROL 1,000 UNITS 25 MCG TAB PO SCH (09:23)
[2021-03-13] MEDS: ASPIRIN 81 MG ECTAB PO SCH (09:23)
[2021-03-13] MEDS: predniSONE 5 MG TAB PO SCH (09:23)
[2021-03-13] MEDS: LIDOCAINE 5% 1 PATCH TD SCH (09:24)
[2021-03-13] MEDS: CALCIUM CARBONATE 1250MG TAB PO SCH ×2 (09:24→20:44)
[2021-03-13] MEDS: FLUoxetine HCL 10 MG CAP PO SCH ×2 (09:24→20:46)
[2021-03-13] MEDS: POLYETHYLENE (MIRALAX) 17 GM PACK PO SCH (09:33)
[2021-03-13] MEDS ORDERED: ALBUTEROL 0.083% NEBU SOLN 3 ML VIAL INH PRN (10:56)
--- NOTE | 2021-03-13 15:52 | Hospitalist Progress Note ---
Date of Service March 13, 2021 Assessment & Plan (1) Cervical spine fracture: Plan: -C7 vertebra endplate compression with 3mm retropulsion without central canal stenosis Seen by customer management specialist (Dr. Larson) who believes this can be managed nonoperatively with a [place] J collar--appreciate recommendations -Per orthopedics, patient may take collar off to eat and pressure teeth -Goal is for adequate pain control -Currently Nucynta is on board scheduled and causing excessive sedation. We will change his back to as needed -Pain management was consulted and agreed with continuation of the Nucynta. May uptitrate if needed but patient reports pain is adequately controlled with this and Tylenol -PT/OT on board. Will require short-term rehab. Case management on board. Referrals made to [facility], [facility], and [place] (2) Left rib fracture: Plan: incentive spirometry encouraged due to splinting secondary to eighth rib fracture and risk for atelectasis with progression to pneumonia. -Add Lidoderm patch (3) Multiple falls: Plan: Multifactorial including arthritis, peripheral neuropathy, iatrogenic (Nucynta, Lyrica, Diazepam, methocarbamol), lumbar spinal stenosis This most recent fall seems to be mostly in part due to her weightbearing restrictions to the right lower extremity PT/OT (4) Closed fracture of heel bone: Plan: right sided , distal fibulae and calcaneal heel fracture, in addition to small cuboid avulsion, per ortho Toe touch weight bearing on right foot per last ortho note recommendations Age-related osteoporosis w current path fracture, vertebra, L rib, R calcaneus and R cuboid (5) Cuboid fracture: Plan: As above (6) GERD (gastroesophageal reflux disease): Plan: Continue Dexilant (7) Fibromyalgia: Plan: Continue Lyrica and chronic pain medications with Nucynta (8) Depression: Plan: Continue fluoxetine 10mg PO daily and duloxetine 60mg PO HS (9) Rheumatoid arthritis: Plan: Patient was prescribed prednisone 2.5 mg twice daily (as this was listed on her home med list) She reports that she takes 5 mg in the morning and2.5 in the evening. This will be changed to reflect correct prehospital dosing (10) Hypothyroidism: Plan: TSH 7.82. In setting of acute fall would not adjust her levothyroxine dosing (euthyroid sick? )-- Repeat in 4-6 weeks. (11) Restless leg syndrome: Plan: Continue pramipexole 2mg PO HS Iron studies in AM (12) Lumbar stenosis with neurogenic claudication: Plan: Noted recent surgery for this ?cause of neuropathy. (13) Overactive bladder: Plan: Continue Toviaz 4mg PO daily (14) Asthma: Plan: Unknown severity. Continue Symbicort 2 puff BID or hospital formulary equivalent. Plan: - Admission and Anticipated Discharge Date Admission Date: March 10, 2021 Subjective pt is doing well, has fair pain control, is awaiting placement, quearied if should adjust pain meds and pt states she if fine with where she is Review of Systems Review of Systems: Mild distress and fatigue no headache, no visual changes controlled neck pain without radicular pain no speech or swallowing issues no chest pain, pressure or palpitations no shortness of breath, cough or wheezes no abdominal pain, nausea or vomiting, diarrhea or constipation no dysuria, hematuria or frequency right ankle foot pain with boot on no back pain, CVA tenderness or radicular pain no bruising, bleeding or rashes no focal signs of weakness or numbness or altered sensation no complaints of anxiety or depression.. Physical Exam Physical Exam: [place] j collar in place cardiac is regular lungs are clear boot in place on right foot with distal sensation intact Results & Data Results & Data ([facility]) Vital Signs (Past 12 Hours) Vital Signs Temp Pulse Resp BP Pulse Ox 03/13/21 07:25 97.5 F L 85 16 147/76 H 95 PG Care Time/CCT Total # of Minutes Spent Total Time Spent with Patient: Total time spent is greater than 50% in coordination of care (as documented) at patient's floor/unit and/or counseling patient: Coding Level of Care Code 48103 Subseq Hosp Care Lvl 1 Diagnoses Cervical spine fracture S12.9XXA Left rib fracture S22.32XA Encounter type: initial encounter Fracture type: closed Rib fracture type: single rib Multiple falls R29.6 Closed fracture of heel bone S92.001A Calcaneus location: unspecified portion of calcaneus Encounter type: initial encounter Fracture alignment: nondisplaced Laterality: right Cuboid fracture S92.214A Encounter type: initial encounter Fracture alignment: nondisplaced Fracture type: closed Laterality: right GERD (gastroesophageal reflux disease) K21.9 Fibromyalgia M79.7 Depression F32.9 Rheumatoid arthritis M06.9 Hypothyroidism E03.9 Restless leg syndrome G25.81 Lumbar stenosis with neurogenic claudication M48.062 Overactive bladder N32.81 Asthma J45.909 (1) Left rib fracture Encounter type: initial encounter Fracture type: closed Rib fracture type: single rib Qualified Code(s): S22.32XA - Fracture of one rib, left side, initial encounter for closed fracture (2) Closed fracture of heel bone Calcaneus location: unspecified portion of calcaneus Encounter type: initial encounter Fracture alignment: nondisplaced Laterality: right Qualified Code(s): S92.001A - Unspecified fracture of right calcaneus, initial encounter for closed fracture (3) Cuboid fracture Encounter type: initial encounter Fracture alignment: nondisplaced Fracture type: closed Laterality: right Qualified Code(s): S92.214A - Nondisplaced fracture of cuboid bone of right foot, initial encounter for closed fracture
[2021-03-13] MEDS: PRAMIPEXOLE DIHYDROCHLO 0.5 MG TAB PO SCH (20:44)
[2021-03-13] MEDS: predniSONE 2.5 MG TAB PO SCH (20:45)
[2021-03-13] MEDS: DULoxetine HCL 60 MG CAP PO SCH (20:45)
[2021-03-13] MEDS: FESOTERODINE FUMARATE 4 MG PO SCH (20:45)
[2021-03-13] MEDS: TAPENTADOL HCL 50 MG TAB PO PRN (20:50)
[2021-03-14] MEDS: LEVOTHYROXINE SODIUM 75 MCG TABLET PO SCH (05:44)
[2021-03-14] MEDS: FAMOTIDINE 20 MG TAB PO SCH (05:44)
[2021-03-14] MEDS: CHOLECALCIFEROL 1,000 UNITS 25 MCG TAB PO SCH (08:00)
[2021-03-14] MEDS: MAGNESIUM OXIDE 400 MG TAB PO SCH (08:00)
[2021-03-14] MEDS: ASPIRIN 81 MG ECTAB PO SCH (08:00)
[2021-03-14] MEDS: FLUoxetine HCL 10 MG CAP PO SCH (08:01)
[2021-03-14] MEDS: predniSONE 5 MG TAB PO SCH (08:01)
[2021-03-14] MEDS: CALCIUM CARBONATE 1250MG TAB PO SCH (08:01)
[2021-03-14] MEDS: LIDOCAINE 5% 1 PATCH TD SCH (08:02)
[2021-03-14] MEDS: POLYETHYLENE (MIRALAX) 17 GM PACK PO SCH (08:03)
[2021-03-14] MEDS: PREGABALIN 150 MG CAP PO SCH ×2 (08:04→13:50)
--- NOTE | 2021-03-14 08:27 | Hospitalist Progress Note ---
Date of Service March 14, 2021 Assessment & Plan (1) Cervical spine fracture: Plan: -C7 vertebra endplate compression with 3mm retropulsion without central canal stenosis Seen by improvement specialist (Dr. Larson) who believes this can be managed nonoperatively with a [place] J collar--appreciate recommendations -Per orthopedics, patient may take collar off to eat and pressure teeth -Goal is for adequate pain control -Currently Nucynta is on board scheduled and causing excessive sedation. We will change his back to as needed -Pain management was consulted and agreed with continuation of the Nucynta. May uptitrate if needed but patient reports pain is adequately controlled with this and Tylenol -PT/OT on board. Will require short-term rehab. Case management on board. Referrals made to [facility], [facility], and [place] (2) Left rib fracture: Plan: incentive spirometry encouraged due to splinting secondary to eighth rib fracture and risk for atelectasis with progression to pneumonia. -Add Lidoderm patch (3) Multiple falls: Plan: Multifactorial including arthritis, peripheral neuropathy, iatrogenic (Nucynta, Lyrica, Diazepam, methocarbamol), lumbar spinal stenosis This most recent fall seems to be mostly in part due to her weightbearing restrictions to the right lower extremity PT/OT (4) Closed fracture of heel bone: Plan: right sided , distal fibulae and calcaneal heel fracture, in addition to small cuboid avulsion, per ortho Toe touch weight bearing on right foot per last ortho note recommendations Age-related osteoporosis w current path fracture, vertebra, L rib, R calcaneus and R cuboid (5) Cuboid fracture: Plan: As above (6) GERD (gastroesophageal reflux disease): Plan: Continue Dexilant (7) Fibromyalgia: Plan: Continue Lyrica and chronic pain medications with Nucynta (8) Depression: Plan: Continue fluoxetine 10mg PO daily and duloxetine 60mg PO HS (9) Rheumatoid arthritis: Plan: Patient was prescribed prednisone 2.5 mg twice daily (as this was listed on her home med list) She reports that she takes 5 mg in the morning and2.5 in the evening. This will be changed to reflect correct prehospital dosing (10) Hypothyroidism: Plan: TSH 7.82. In setting of acute fall would not adjust her levothyroxine dosing (euthyroid sick? )-- Repeat in 4-6 weeks. (11) Restless leg syndrome: Plan: Continue pramipexole 2mg PO HS Iron studies in AM (12) Lumbar stenosis with neurogenic claudication: Plan: Noted recent surgery for this ?cause of neuropathy. (13) Overactive bladder: Plan: Continue Toviaz 4mg PO daily (14) Asthma: Plan: Unknown severity. Continue Symbicort 2 puff BID or hospital formulary equivalent. Plan: - Admission and Anticipated Discharge Date Admission Date: March 10, 2021 Results & Data Results & Data ([facility]) Vital Signs (Past 12 Hours) Vital Signs Temp Pulse Resp BP Pulse Ox 03/14/21 07:53 97.5 F L 82 16 157/87 H 97 03/13/21 21:24 97.9 F 84 16 126/70 94 PG Care Time/CCT Total # of Minutes Spent Total Time Spent with Patient: Total time spent is greater than 50% in coordination of care (as documented) at patient's floor/unit and/or counseling patient: Coding Diagnoses Cervical spine fracture S12.9XXA Left rib fracture S22.32XA Encounter type: initial encounter Fracture type: closed Rib fracture type: single rib Multiple falls R29.6 Closed fracture of heel bone S92.001A Calcaneus location: unspecified portion of calcaneus Encounter type: initial encounter Fracture alignment: nondisplaced Laterality: right Cuboid fracture S92.214A Encounter type: initial encounter Fracture alignment: nondisplaced Fracture type: closed Laterality: right GERD (gastroesophageal reflux disease) K21.9 Fibromyalgia M79.7 Depression F32.9 Rheumatoid arthritis M06.9 Hypothyroidism E03.9 Restless leg syndrome G25.81 Lumbar stenosis with neurogenic claudication M48.062 Overactive bladder N32.81 Asthma J45.909 (1) Left rib fracture Encounter type: initial encounter Fracture type: closed Rib fracture type: single rib Qualified Code(s): S22.32XA - Fracture of one rib, left side, initial encounter for closed fracture (2) Closed fracture of heel bone Calcaneus location: unspecified portion of calcaneus Encounter type: initial encounter Fracture alignment: nondisplaced Laterality: right Qualified Code(s): S92.001A - Unspecified fracture of right calcaneus, initial encounter for closed fracture (3) Cuboid fracture Encounter type: initial encounter Fracture alignment: nondisplaced Fracture type: closed Laterality: right Qualified Code(s): S92.214A - Nondisplaced fracture of cuboid bone of right foot, initial encounter for closed fracture
--- NOTE | 2021-03-14 19:31 | Discharge Summary ---
Date of Service March 14, 2021 Admission HPI Per Admitting Provider Iman Hallman is an 85 year old female who presents to the ER after a fall. She is here with her niece but history mostly taken from the patient. She reports struggling to get a door open at her orthopedic appointment earlier today. She is recently toe touch weight bearing on her right foot from recent calcaneal fracture and she lost her balance and fell. She denies hitting her head. No new neck pain. No hip pain after falling. No presyncope, syncope, chest pain or shortness of breath prior to falling. She reports multiple episodes of falling over the last year but she is unsure why. Just tells me her balance is off. 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 She is only multiple medications increasing her risk of falls. She was recently prescribed diazepam on PDMP and reports using this mainly to sleep. She takes her methocarbamol once or twice a day during the day time for back spasms. Nycyta is prescribed TID but she reports using at bed time for sleep. Pregabalin has been longstanding for her peripheral neuropathy. She tells me she has pain all over from rheumatoid arthritis and fibromyalgia. She was previously seen by rheumatology in [place] but is yet to establish here. She recently moved here from [place] therefore prior history if somewhat limited to her recollection. She was living with her brother in [place] who recently and lost the house she was living in. She came to [place] to look after her sister after her recently . Due to difficulties in swi tching her medicare from [place] to [place] she is yet to establish with any doctors in the area. In the ER CT imaging of her cervical spine showed an acute 25% superior endplate compression fracture of C7. She was placed in a [place] J collar. She denies any new pain in this region but has chronic neck pain for which she used to receive botox injections in [place]. Principal Diagnosis c7 vertebral compression fracture 8 left rib fracture right cuboid calcaneus and distal fibulae fracture Discharge Exam The patient appeared well He is wearing a [place] J c-collar Vital signs as documented. Lungs are clear to auscultation and appear unlabored Cardiac exam, Rhythm is regular.. No murmurs, rubs or gallops. Abdominal exam reveals normal bowel sounds, soft non tender, no masses Extremities right foot has a boot in place good distal sensation and strength to her toes Neurologic exam is alert and oriented, no focal loss of strength or sensation Skin is without bruises or rashes Psychologically is without concerns for anxiety or depression. Discharge Data Allergies Allergy/AdvReac Type Severity Reaction Status Date / Time morphine Allergy Unknown DIZZINESS Verified 03/08/21 11:08 nickel Allergy Unknown EARS GET Verified 03/08/21 11:08 SORE FROM EARRINGS WITH NICKEL Penicillins Allergy Unknown RASH Verified 03/08/21 11:08 soy Allergy Unknown HEADACHE Verified 03/08/21 11:08 Consultations 03/08/21 12:17 ED Decision to Admit Stat 03/08/21 21:02 Consult Orthopedic Surgery Routine 03/08/21 21:10 Consult Pain Management Routine Ordered Studies 03/08/21 10:27 CT cervical spine wo con Stat CT chest diagnostic w con Stat CT head/brain wo con Stat 03/08/21 11:54 MR cervical spine wo con Stat Hospital Course (1) Cervical spine fracture: -C7 vertebra endplate compression with 3mm retropulsion without central canal stenosis Seen by billing specialist (Dr. Larson) who believes this can be managed nonoperatively with a [place] J collar--appreciate recommendations -Per orthopedics, patient may take collar off to eat and pressure teeth -Goal is for adequate pain control -Currently Nucynta is on board scheduled and causing excessive sedation. We will change his back to as needed -Pain management was consulted and agreed with continuation of the Nucynta. May uptitrate if needed but patient reports pain is adequately controlled with this and Tylenol -PT/OT on board. Will require short-term rehab. (2) Left rib fracture: incentive spirometry encouraged due to splinting secondary to eighth rib fracture and risk for atelectasis with progression to pneumonia. -Add Lidoderm patch (3) Multiple falls: Multifactorial including arthritis, peripheral neuropathy, iatrogenic (Nucynta, Lyrica, Diazepam, methocarbamol), lumbar spinal stenosis This most recent fall seems to be mostly in part due to her weightbearing restrictions to the right lower extremity PT/OT at rehab center (4) Closed fracture of heel bone: right sided , distal fibulae and calcaneal heel fracture, in addition to small cuboid avulsion, per ortho Toe touch weight bearing on right foot per last ortho note recommendations Age-related osteoporosis w current path fracture, vertebra, L rib, R calcaneus and R cuboid (5) Cuboid fracture: As above (6) GERD (gastroesophageal reflux disease): Continue Dexilant (7) Fibromyalgia: Continue Lyrica and chronic pain medications with Nucynta (8) Depression: Continue fluoxetine 10mg PO daily and duloxetine 60mg PO HS (9) Rheumatoid arthritis: Patient was prescribed prednisone 2.5 mg twice daily (as this was listed on her home med list) She reports that she takes 5 mg in the morning and2.5 in the evening. This will be changed to reflect correct prehospital dosing (10) Hypothyroidism: TSH 7.82. In setting of acute fall would not adjust her levothyroxine dosing (euthyroid sick? )-- Repeat in 4-6 weeks. (11) Restless leg syndrome: Continue pramipexole 2mg PO HS Iron studies in AM (12) Lumbar stenosis with neurogenic claudication: Noted recent surgery for this ?cause of neuropathy. (13) Overactive bladder: Continue Toviaz 4mg PO daily (14) Asthma: Unknown severity. Continue Symbicort 2 puff BID or hospital formulary equivalent. - Total Time Total Time Spent Total Time Spent (In Minutes): It required less than 30 minutes to prepare this patient for discharge Discharge Plan Discharge Items Patient Disposition: Transfer [facility] Reason For Visit: FALLS, CERVICAL COMPRESSION FRACTURE Discharge Diagnosis: cervical vertebrae #7 compression fracture with intractle pin right distal fibulae cuboid and calcaneal fracture left 8th rib fracture Activity: Per Instructions section Activity Comment: instructions per PT/OT Non-emergency contact: Primary Care Provider and Surgeon Call non-emergency contact if: you have any medication questions, your symptoms worsen, your pain is worsening and you have a fever Follow-up/Referrals: Bharati House MD [Primary Care Provider] - Diet: Regular Addtl Attending Provider Instructions: please monitor for need of adjustment of pain management wear c collar at all times except short breaks when laying down to bath wear right ankle boot and follow up with orthopedics Pending Studies at Discharge: No Stand-Alone Forms: My [employer] Skilled Items Patient informed of condition?: Yes DNR: Yes Discharge Level of Care: Skilled Communicable Disease: No Discharge Prognosis: Stable Lines: None Urinary Catheter: No Medications and DC Order Prescriptions: New polyethylene glycol 3350 [Miralax] 17 gram Powder In Packet 17 g PO DAILY Qty: 30 RF: 0 acetaminophen [Tylenol Extra Strength] 500 mg Tablet 1,000 mg PO TID PRN (Reason: pain) Qty: 90 RF: 0 lidocaine 5 % Adhesive Patch,Medicated 1 patch transdermal QAM Qty: 10 RF: 0 cholecalciferol (vitamin D3) 25 mcg (1,000 unit) Capsule 1,000 unit PO QAM Qty: 30 RF: 0 Continued Dexilant 60 mg capsule,biphase delayed releas 60 mg PO DAILY RF: 0 duloxetine 60 mg capsule,delayed release(DR/EC) 60 mg PO HS RF: 0 fluoxetine 20 mg capsule 10 mg PO BID RF: 0 levothyroxine 75 mcg tablet 75 mcg PO DAILY RF: 0 pramipexole 1 mg tablet 2 mg PO HS RF: 0 prednisone 5 mg tablet 2.5 mg PO BID RF: 0 pregabalin 150 mg capsule 150 mg PO TID RF: 0 Toviaz 4 mg tablet extended release 24 hr 4 mg PO DAILY RF: 0 aspirin 81 mg Capsule 81 mg PO DAILY RF: 0 albuterol sulfate 2.5 mg /3 mL (0.083 %) Solution For Nebulization 2.5 mg inhalation DAILY PRN (Reason: Shortness Of Breath) RF: 0 budesonide-formoterol [Symbicort] 160-4.5 mcg/actuation Hfa Aerosol Inhaler 2 puff INHALATION BID PRN (Reason: Shortness Of Breath Or Wheezing) RF: 0 Xi[place]ra 5 % Dropperette 1 drp OPHTHALMIC (EYE) BID PRN (Reason: Dry Eye(S)) RF: 0 ipratropium bromide 21 mcg (0.03 %) [place],Non-Aerosol 2 spray INTRANASAL BID PRN (Reason: Allergy Symptoms) RF: 0 magnesium 200 mg Tablet 1,200 mg PO DAILY RF: 0 calcium carbonate [Calcium 500] 500 mg calcium (1,250 mg) Tablet 1,000 mg PO BID RF: 0 Changed Nucynta 50 mg Tablet 50 mg PO TID PRN (Reason: pain) Qty: 30 RF: 0 Discontinued etodolac 200 mg capsule 200 mg PO Q12H PRN (Reason: pain) Qty: 14 RF: 0 methocarbamol 750 mg Tablet 1,500 mg PO TID RF: 0 Discharge Orders: Discharge Order (Routine); Ordered 03/14/21 Ordered By: Mike Padron/Other Patient Handouts: DVT Dc Admission Data Admit Date/Time: 03/10/21 12:11 Attending Provider: Mike Matthew Admit Provider: Sunny Graf Primary Care Provider: Bharati oHuse Other Providers: [facility] ; Sunny Graf ; Joe Larson ; Gerson Shay Other Interventions: Discharge Summary Assessment (RN) Last Done: 03/14/21 13:44 Coding Level of Care Code D/C DAY MANAGEMENT <30 MINS Diagnoses Cervical spine fracture S12.9XXA Left rib fracture S22.32XA Encounter type: initial encounter Fracture type: closed Rib fracture type: single rib Multiple falls R29.6 Closed fracture of heel bone S92.001A Calcaneus location: unspecified portion of calcaneus Encounter type: initial encounter Fracture alignment: nondisplaced Laterality: right Cuboid fracture S92.214A Encounter type: initial encounter Fracture alignment: nondisplaced Fracture type: closed Laterality: right GERD (gastroesophageal reflux disease) K21.9 Fibromyalgia M79.7 Depression F32.9 Rheumatoid arthritis M06.9 Hypothyroidism E03.9 Restless leg syndrome G25.81 Lumbar stenosis with neurogenic claudication M48.062 Overactive bladder N32.81 Asthma J45.909
--- NOTE | 2021-03-21 08:04 | Coding Query ---
CODING CLARIFICATION Please clarify below the causes/diagnoses relating to or directly impacting the fractures on this visit: ( ) Trauma ( ) Osteoporosis ( xx ) Trauma and osteoporosis ( ) Other, please clarify: Thank you for your assistance, Martha Cohen - [employer]
== END 2021-03-14 14:26 ==
LOC: ED 09:35 → EDINP 09:35 → SUATTDRO 13:27 → 2N 14:55 → SUATTDRO 03-10 12:11 → 3E 03-10 20:31

== ENCOUNTER 2023-06-27 14:38 | Observation (INO) ==
--- NOTE | 2023-06-27 14:48 | ED Triage Note ---
Date of Service June 27, 2023 Provider in Triage Author: Kathryn Louis History of Present Illness This patient was briefly evaluated while in triage. An abbreviated physical exam was performed. This patient is a 88-year-old Female who presents to the ED for evaluation complaining of "seeing worms coming out of her hands" since last night not sleeping well, headache, feeling weak per EMS, BSG 95, Stroke scale negative hx of hallucinations with UTI and pneumonia in the past Physical Exam GENERAL: Pleasant in wheelchair in NAD CARDIOVASCULAR: RRR RESPIRATORY: CTA ABDOMEN: BS x 4. Nontender to palpation. Initial orders for labs and / or imaging were placed and patient was placed in the waiting area until a bed is available. Please see further documentation for the full ED course.
[2023-06-27 15:41] LABS: Basophils # (auto) 0.03 K/uL (0.00-0.20); Basophils % (auto) 0.4 %; Eosinophils # (auto) 0.09 K/uL (0.00-0.50); Eosinophils % (auto) 1.1 %; Hematocrit (blood only) 40.7 % (37.0-47.0); Hemoglobin 13.4 g/dl (12.0-16.0); Immature Granulocytes # (auto) 0.01 K/uL (0.01-0.20); Immature Granulocytes % (auto) 0.1 %; Lymphocytes # (auto) 1.32 K/uL (1.20-3.40); Lymphocytes % (auto) 16.5 %; Mean Corpuscular Hemoglobin 28.2 pg (25.0-34.0); Mean Corpuscular Hgb Conc 32.9 g/dL (32.0-36.0); Mean Corpuscular Volume 85.5 fL (80.0-100.0); Mean Platelet Volume 10.1 fL (9.4-12.4); Monocytes # (auto) 0.58 K/uL (0.11-0.59); Monocytes % (auto) 7.3 %; Neutrophils # (auto) 5.95 K/uL (1.40-6.50); Neutrophils % (auto) 74.6 %; Platelet Count 268 K/uL (130-400); RDW Coefficient of Variation 15.9 % (11.5-14.5); RDW Standard Deviation 49.8 fL (36.4-46.3); Red Blood Count 4.76 M/uL (4.20-5.40); White Blood Count 7.98 K/ul (4.8-10.8)
[2023-06-27 15:58] LABS: Alanine Aminotransferase 31 U/L (7-52); Albumin Level 4.6 gm/dl (3.4-5.0); Alkaline Phosphatase 54 U/L (34-104); Anion Gap 8 (3-11); Aspartate Aminotransferase 44 U/L (13-39); BUN Creatinine Ratio 32.1 (10-20); Bilirubin,Total 0.8 mg/dl (0.2-1.0); Blood Urea Nitrogen 17 mg/dl (6-23); Calcium 9.8 mg/dl (8.6-10.3); Carbon Dioxide 31 mmol/L (21-32); Chloride 102 mmol/L (98-107); Est GFR (African American) 98.9 ml/min; Est GFR (Non-African American) 85.4 ml/min; Globulin 2.3 gm/dl (2.5-4.0); Glucose 92 mg/dl (70-99(Fasting)); Potassium 3.4 mmol/L (3.5-5.1); Sodium 141 mmol/L (136-145); Total Protein 6.9 gm/dl (6.0-8.3)
[2023-06-27 16:03] LABS: Troponin I High Sensitivity 10.7 pg/ml (0-14)
--- NOTE | 2023-06-27 16:03 | CT Scan Report ---
HEAD CT NONCONTRAST CT DOSE: 547.75 mGy.cm HISTORY: altered mental status TECHNIQUE: Multiaxial CT images of the head were performed without the use of intravenous contrast. A utomated exposure control was utilized for this study. A dose lowering technique was utilized adheri ng to the principles of ALARA. Comparison: Head CT 07/23/2022. Findings: The paranasal sinuses and mastoid air cells are clear. The calvarium and skull base are int act. There is no mass, hematoma, midline shift, acute infarct. White matter hypodensity is nonspecifi c but suggestive of microvascular ischemic change. The ventricles and sulci demonstrate mild age-rela britt involutional changes. 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 Impression: No significant change compared to the prior study. No acute intracranial abnormality. ACT 112: Negative or not required by law. Electronically signed by: David Ocasio M.D. 06/27/2023 4:02 PM
[2023-06-27 16:09] LABS: Partial Thromboplastin Time 28 Seconds (21-31); Prothrombin Time 10.7 Seconds (9.0-12.0)
--- NOTE | 2023-06-27 16:11 | XRay Report ---
SINGLE VIEW CHEST CLINICAL HISTORY: Generalized weakness. Hallucinations. FINDINGS: An AP, portable, upright chest radiograph is compared to study dated 05/07/2023 and correla britt with chest CT dated 03/08/2021. The heart is mildly enlarged noting atherosclerotic calcification of the thoracic aorta. The mitral annulus is densely calcified. The pulmonary vasculature is noncong ested. Chronic interstitial thickening is similar to previous. No airspace consolidation or large ple ural effusion is identified. No pneumothorax is seen. The skeletal structures are osteopenic. There a re chronic/healed left posterior rib fractures. IMPRESSION: Cardiomegaly with no active disease in the chest. ACT 112: Negative or not required by law. Electronically signed by: Jose Maria Santiago M.D. 06/27/2023 4:09 PM
[2023-06-27] MEDS ORDERED: cefTRIAXone SODIUM 2,000 MG/50 ML BAG IV STA (16:34)
--- NOTE | 2023-06-27 16:41 | Emergency Department Note ---
Impression & Plan Acute confusion, Laceration of right hand with infection ED Provider Note NAME: PINEDA GOTTI AGE: 88 SEX: F : 1935 ARRIVES VIA: Ambulance INFORMANT: Patient, the patient's friend ED PROVIDER(S): Messi Flanagan DO CHIEF COMPLAINT: Laceration HPI: The patient is an 88-year-old female who sent emergency department by her primary care physician for evaluation of a laceration on her right hand. She states that she was closing the door and she caught her right hand in the door jam last evening. She has a laceration to the dorsal surface of the hand. She states that ever since that time she noticed worms coming out of wound. According to her friend she had multiple bloodsoaked tissues and they are concerned the patient needed to be evaluated the emergency department. The patient denies have any chest pain or difficulty breathing. She denies having any fever or headache. This was reportedly altered mental status for this patient. ROS: See above HPI for pertinent positives & negatives. A total of 10 systems reviewed and were otherwise negative. PAST MEDICAL HISTORY: See Below PAST SURGICAL HISTORY: See Below FAMILY HISTORY: See Below SOCIAL HISTORY: See Below HOME MEDICATIONS: See Below ALLERGIES: See Below VITALS: See Below PHYSICAL EXAMINATION: GENERAL: Patient is awake alert in no acute distress patient is resting comfortably and showing no signs of anxiety EYES: The conjunctivae are clear. The pupils are round and reactive. EARS, NOSE, MOUTH AND THROAT: The nose is without any evidence of any deformity. NECK: The neck is nontender and supple. RESPIRATORY: Normal respiratory effort is noted there is no evidence of wheezing rhonchi or rales CARDIOVASCULAR: Regular rate and rhythm noted there no murmurs rubs or gallops normal S1 normal S2. GASTROINTESTINAL: The abdomen is soft. Abdomen is nontender. MUSCULOSKELETAL/EXTREMITIES: There is no evidence of gross deformity full range of motion is noted in the hips and shoulders. SKIN: There is no obvious evidence of any rash. There is a small subcentimeter laceration over the dorsal aspect of the right hand. This overlies the base of the second digit. It is full-thickness. The extensor tendon is evaluated and does not appear to be lacerated. NEUROLOGIC: Patient is awake alert and oriented to person place and situation. Strength is symmetric. MEDICAL DECISION MAKING: The patient is an 88-year-old female that was sent to the emergency department by her primary care physician for an evaluation. The patient had a laceration to her right hand that she sustained yesterday. It sounds though the patient may have been picking at this laceration over the last 24 hours. She thought she had worms coming out of the laceration. On physical exam she did have subcu air. The patient's x-ray was read by radiology as normal. For this reason CT of the hand was obtained which does show subcu air. I do feel this may be the cause of the patient's feeling of worms under her skin. She was treated with antibiotic ointment and wound care. She was also treated with IV antibiotics. I discussed her condition with the on-call online marketing specialist as well as the on-call [facility] hospitalist. They have agreed to evaluate the patient in the emergency department for further management and disposition. I do not feel this represents a gas forming infection rather I feel it most likely explains her can be explained by her picking at the laceration. She was nontoxic- appearing. Triage Nursing notes reviewed. Prior medical records reviewed Vital Signs: reviewed and remarkable for elevated blood pressure. Differential diagnosis: Infection, hypoglycemia, electrolyte abnormalities, overdose, toxicologic, cardiac sources, intracerebral event, neurologic, trauma, as well as other pathologies. ER treatment provided: See below Diagnostics interpreted by me: ECG: EKG was obtained in the emergency department. My interpretation is sinus rhythm at 89 bpm. There is no ectopy. Nonspecific inferior lateral ST depressions were noted. This was compared to a tracing from May 07, 2023. There is no significant changes noted. Cardiac Monitoring: An order was placed for continuous cardiac monitoring. The monitor shows a rate of 83 bpm with sinus rhythm. Laboratory studies: As stated above and show below. Imaging studies: See below. Radiographic imaging was reviewed by myself Consultation(s): I discussed this case with Dr. Cervantes who is on for orthopedics. I discussed this case with Dr. Lee who is on-call for the [facility] group. Past Med/Surg History Medical History Hypertension FH: cholecystectomy GERD (gastroesophageal reflux disease) Hypothyroidism Rheumatoid arthritis Anxiety Depression Fibromyalgia Surgical History History of lumbar fusion x2 H/O: hysterectomy History of partial nephrectomy H/O total knee replacement x2 H/O total hip arthroplasty Family History Other No pertinent family history Social History Smoking Status: Never smoker Second Hand Exposure: No; Do You Dip or Chew Tobacco: No; Hx Alcohol Use: No Hx Substance Use: No Preferred Language: Emirati Communication Ability: Effective Instructional Technology Director Required: No Beliefs That Will Affect Care: None Current Living Situation: Other current occupational status: retired Feels Safe at Home: Yes Assistive Devices: Glasses and Walker Allergies Allergies Allergy/AdvReac Type Severity Reaction Status Date / Time morphine Allergy Unknown DIZZINESS Verified 06/27/23 13:23 nickel Allergy Unknown EARS GET Verified 06/27/23 13:23 SORE FROM [place] WITH NICKEL Penicillins Allergy Unknown RASH Verified 06/27/23 13:23 soy Allergy Unknown HEADACHE Verified 06/27/23 13:23 Sulfa (Sulfonamide Allergy Verified 06/27/23 13:23 Antibiotics) Home Meds Home Medications Medication Instructions Recorded Confirmed dexlansoprazole 60 mg 60 mg PO DAILY 03/08/21 06/27/23 capsule,biphase delayed release (Dexilant) duloxetine 60 mg capsule,delayed 60 mg PO HS 03/08/21 06/27/23 release ipratropium bromide 21 mcg (0.03 2 spray intranasal BID PRN Allergy 03/08/21 06/27/23 %) nasal spray Symptoms lifitegrast 5 % eye drops in a 1 drp ophthalmic (eye) BID PRN Dry 03/08/21 06/27/23 dropperette (Xiidra) Eye(S) pramipexole 1 mg tablet 2 mg PO HS 03/08/21 06/27/23 apixaban 2.5 mg tablet (Eliquis) 2.5 mg PO BID 04/28/23 06/27/23 levothyroxine 88 mcg tablet 88 mcg PO DAILYBB 06/24/23 06/27/23 calcium carbonate 500 mg calcium 1,000 mg PO BID 06/27/23 06/27/23 (1,250 mg) tablet Previous Rx's Medication Instructions Recorded cholecalciferol (vitamin D3) 25 1,000 unit PO QAM #30 caps 03/14/21 mcg (1,000 unit) capsule diclofenac sodium 1 % topical gel 2 g topical QID #200 grams 06/07/22 (Voltaren Arthritis Pain) zoledronic acid 5 mg/100 mL in 1 ea IV YEARLY #100 mL 10/09/22 mannitol 5 %-water intravenous piggybck amlodipine 5 mg tablet 5 mg PO DAILY #90 tabs 02/03/23 hydrochlorothiazide 25 mg tablet 25 mg PO DAILY #90 tabs 03/03/23 fluticasone propionate 50 1 spray intranasal DAILY #9.9 grams 04/28/23 mcg/actuation nasal spray,suspension (Allergy Relief (fluticasone)) chlorpheniramine-dextromethorphan 1 tab PO TID PRN cough #30 tabs 05/09/23 4 mg-30 mg tablet prednisone 5 mg tablet 2.5 mg (1/2 x 5 mg) PO BID #180 06/11/23 tabs pregabalin 150 mg capsule 150 mg PO TID #90 caps 06/11/23 Results & Data (ED) Vital Signs Vital Signs - 24 hr 06/27/23 15:00 06/27/23 15:46 06/27/23 16:50 Temperature 36.9 C Temperature Source Temporal Artery Scan Pulse Rate 84 94 H Pulse Rate from SpO2 Sensor Respiratory Rate 20 19 Respiratory Effort / Characteristics Non-Labored Spontaneous Respiratory Depth Normal Respiratory Pattern Regular Blood Pressure 146/80 H Blood Pressure Mean 102 Blood Pressure Position Sitting Pulse Oximetry 97 96 Oxygen Delivery Method Room Air Room Air Oxygen Flow Rate 0 Sepsis Recent Fever Within 48 Hours No Sepsis New/Unexplained Change in Mental Status No Sepsis Action Taken by Nursing No Action Required 06/27/23 16:51 06/27/23 17:00 06/27/23 17:00 Temperature Temperature Source Pulse Rate 93 H 82 Pulse Rate from SpO2 Sensor 84 Respiratory Rate 14 Respiratory Effort / Characteristics Respiratory Depth Respiratory Pattern Blood Pressure 181/104 H Blood Pressure Mean 122 Blood Pressure Position Pulse Oximetry 97 Oxygen Delivery Method Oxygen Flow Rate Sepsis Recent Fever Within 48 Hours Sepsis New/Unexplained Change in Mental Status Sepsis Action Taken by Nursing 06/27/23 17:10 06/27/23 17:20 06/27/23 17:30 Temperature Temperature Source Pulse Rate 84 82 79 Pulse Rate from SpO2 Sensor 85 82 79 Respiratory Rate 15 17 16 Respiratory Effort / Characteristics Respiratory Depth Respiratory Pattern Blood Pressure Blood Pressure Mean Blood Pressure Position Pulse Oximetry 98 100 100 Oxygen Delivery Method Oxygen Flow Rate Sepsis Recent Fever Within 48 Hours Sepsis New/Unexplained Change in Mental Status Sepsis Action Taken by Nursing 06/27/23 17:30 06/27/23 17:40 06/27/23 17:50 Temperature Temperature Source Pulse Rate 84 84 Pulse Rate from SpO2 Sensor 84 83 Respiratory Rate 14 16 Respiratory Effort / Characteristics Respiratory Depth Respiratory Pattern Blood Pressure 146/71 H Blood Pressure Mean 83 Blood Pressure Position Pulse Oximetry 99 95 Oxygen Delivery Method Oxygen Flow Rate Sepsis Recent Fever Within 48 Hours Sepsis New/Unexplained Change in Mental Status Sepsis Action Taken by Nursing 06/27/23 18:00 06/27/23 18:00 06/27/23 18:10 Temperature Temperature Source Pulse Rate 83 95 H Pulse Rate from SpO2 Sensor 86 95 H Respiratory Rate 17 18 Respiratory Effort / Characteristics Respiratory Depth Respiratory Pattern Blood Pressure 167/88 H Blood Pressure Mean 118 Blood Pressure Position Pulse Oximetry 97 98 Oxygen Delivery Method Oxygen Flow Rate Sepsis Recent Fever Within 48 Hours Sepsis New/Unexplained Change in Mental Status Sepsis Action Taken by Nursing 06/27/23 18:20 06/27/23 18:30 06/27/23 18:30 Temperature Temperature Source Pulse Rate 96 H 83 Pulse Rate from SpO2 Sensor 97 H 86 Respiratory Rate 23 20 Respiratory Effort / Characteristics Respiratory Depth Respiratory Pattern Blood Pressure 160/91 H Blood Pressure Mean 118 Blood Pressure Position Pulse Oximetry 93 98 Oxygen Delivery Method Oxygen Flow Rate Sepsis Recent Fever Within 48 Hours Sepsis New/Unexplained Change in Mental Status Sepsis Action Taken by Intermediate Medications Current Medication List: was personally reviewed by me Laboratory Data Attestation: I reviewed the patient's lab results. 06/27/23 15:20 06/27/23 15:20 Lab Results 06/27/23 06/27/23 Range/Units 15:20 16:50 WBC 7.98 (4.8-10.8) K/ul RBC 4.76 (4.20-5.40) M/uL Hgb 13.4 (12.0-16.0) g/dl Hct 40.7 (37.0-47.0) % MCV 85.5 (80.0-100.0) fL MCH 28.2 (25.0-34.0) pg MCHC 32.9 (32.0-36.0) g/dL RDW Std Deviation 49.8 H (36.4-46.3) fL RDW Coeff of Edgard 15.9 H (11.5-14.5) % Plt Count 268 (130-400) K/uL MPV 10.1 (9.4-12.4) fL Immature Gran % (Auto) 0.1 % Neut % (Auto) 74.6 % Lymph % (Auto) 16.5 % Kane % (Auto) 7.3 % Eos % (Auto) 1.1 % Baso % (Auto) 0.4 % Neut # (Auto) 5.95 (1.40-6.50) K/uL Lymph # (Auto) 1.32 (1.20-3.40) K/uL Kane # (Auto) 0.58 (0.11-0.59) K/uL Eos # (Auto) 0.09 (0.00-0.50) K/uL Baso # (Auto) 0.03 (0.00-0.20) K/uL Immature Gran # (Auto) 0.01 (0.01-0.20) K/uL PT 10.7 (9.0-12.0) Seconds INR 1.0 (0.9-1.1) APTT 28 (21-31) Seconds PTT Ratio 1.0 Sodium 141 (136-145) mmol/L Potassium 3.4 L (3.5-5.1) mmol/L Chloride 102 (98-107) mmol/L Carbon Dioxide 31 (21-32) mmol/L Anion Gap 8 (3-11) BUN 17 (6-23) mg/dl Creatinine 0.53 L (0.6-1.2) mg/dl Est Cr Clr Drug Dosing Not Reportable Est GFR ( Amer) 98.9 ml/min Est GFR (Non-Af Amer) 85.4 ml/min BUN/Creatinine Ratio 32.1 H (10-20) Glucose 92 (70-99(Fasting)) mg/dl Calcium 9.8 (8.6-10.3) mg/dl Magnesium 2.0 (1.7-2.4) mg/dl Total Bilirubin 0.8 (0.2-1.0) mg/dl AST 44 H (13-39) U/L ALT 31 (7-52) U/L Alkaline Phosphatase 54 (34-104) U/L Troponin I High Sens 10.7 (0-14) pg/ml Total Protein 6.9 (6.0-8.3) gm/dl Albumin 4.6 (3.4-5.0) gm/dl Globulin 2.3 L (2.5-4.0) gm/dl Albumin/Globulin Ratio 2.0 (0.9-2) Urine Color Yellow Urine Appearance Clear (Clear) Urine pH 6.5 (4.5-7.5) Ur Specific [place] 1.015 (1.000-1.030) Urine Protein Negative (Negative) Urine Glucose (UA) Negative (Negative) Urine Ketones 2+ H (Negative) Urine Blood Negative (Negative) Urine Nitrite Negative (Negative) Urine Bilirubin Negative (Negative) Urine Urobilinogen Negative (Negative) Ur Leukocyte Esterase Trace H (Negative) Urine WBC (Auto) 5-10 H (0-5) /hpf Urine RBC (Auto) 0-4 (0-4) /hpf U Hyaline Cast (Auto) 0 (0-5) /lpf U Epithel Cells (Auto) 10-20 H (0-5) /lpf Urine Bacteria (Auto) 3+ H (Negative) Urine Yeast Not Reportable Urine Opiates Screen Neg (Neg) Ur Methadone, Qual Neg (Neg) Urine Barbiturates Neg (Neg) Ur Phencyclidine (PCP) Neg (Neg) U Amphetamin/Meth Scrn Neg (Neg) MDMA (Ecstasy) Screen Neg (Neg) U Benzodiazepines Scrn Neg (Neg) Ur Cocaine Metabolite Neg (Neg) U Marijuana (THC) Screen Neg (Neg) Administered Medications Discontinued Medications Ceftriaxone Sodium (Rocephin) 2,000 mg in 50 mls @ 100 mls/hr IV NOW STA Stop: 06/27/23 17:03 Last Infusion: 06/27/23 18:48 Dose: Infused Documented By: Admin: 06/27/23 17:15 Dose: 100 mls/hr Documented By: AM Imaging Data Attestation: I personally reviewed and interpreted this imaging study as follows: My Impression: CT of the brain was obtained in the emergency department for confusion. My interpretation is no intracranial hemorrhage or mass effect, final report below. X-ray of the chest was obtained in the emergency department. My interpretation is no free air or definite infiltrate, final report below. X-ray of the right hand was obtained in the emergency department. My interpretation is subcutaneous air noted. No fracture, final report below. Radiologist's Impression: Head CT 06/27/23 14:[address] DOSE: 547.75 mGy.cm HISTORY: altered mental status TECHNIQUE: Multiaxial CT images of the head were performed without the use of intravenous contrast. Automated exposure control was utilized for this study. A dose lowering technique was utilized adhering to the principles of ALARA. Comparison: Head CT 07/23/2022. Findings: The paranasal sinuses and mastoid air cells are clear. The calvarium and skull base are intact. There is no mass, hematoma, midline shift, acute infarct. White matter hypodensity is nonspecific but suggestive of microvascular ischemic change. The ventricles and sulci demonstrate mild age-related involutional changes. 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 Impression: No significant change compared to the prior study. No acute intracranial abnormality. ACT 112: Negative or not required by law. Electronically signed by: David Ocasio M.D. 06/27/2023 4:02 PM Chest X-Ray 06/27/23 15:03 SINGLE VIEW CHEST CLINICAL HISTORY: Generalized weakness. Hallucinations. FINDINGS: An AP, portable, upright chest radiograph is compared to study dated 05/07/2023 and correlated with chest CT dated 03/08/2021. The heart is mildly enlarged noting atherosclerotic calcification of the thoracic aorta. The mitral annulus is densely calcified. The pulmonary vasculature is noncongested. Chronic interstitial thickening is similar to previous. No airspace consolidation or large pleural effusion is identified. No pneumothorax is seen. The skeletal structures are osteopenic. There are chronic/healed left posterior rib fractures. IMPRESSION: Cardiomegaly with no active disease in the chest. ACT 112: Negative or not required by law. Electronically signed by: Jose Maria Santiago M.D. 06/27/2023 4:09 PM Hand X-Ray 06/27/23 16:34 XR hand RT min 3V routine CLINICAL HISTORY: injury TECHNIQUE: 3 views of the right hand were obtained. Comparison: Comparison is made to right hand radiograph 07/16/2022 FINDINGS: There is no evidence of an acute fracture. Degenerative changes are seen most prominent at the interphalangeal joints. Subluxation of the second digit DIP and fifth digit PIP joints are seen. Soft tissue swelling is seen. IMPRESSION: Extensive osteoarthritic changes without evidence of acute fracture. ACT 112: Negative or not required by law. Electronically signed by: Mitch Rodney M.D. 06/27/2023 5:[address] 06/27/23 17:54 CR Exam(s): CT EXTREMITY RIGHT UPPER Without Contrast EXAM: CT Right Upper Extremity Without Intravenous Contrast CLINICAL HISTORY: Reason for exam: free air. TECHNIQUE: Axial computed tomography images of the right upper extremity without intravenous contrast. CTDI is 13.11 mGy and DLP is 304.06 mGy-cm. Automated exposure control was utilized for the study. A dose lowering technique was utilized adhering to the principles of ALARA. COMPARISON: Same date right hand radiographs. FINDINGS: Bones/joints: Degenerative changes throughout the right and at the MCP joints and interphalangeal joints, most severe at the second DIP joint and fifth PIP joint. Angulation noted at the right second DIP joint and right fifth PIP joint. Chondrocalcinosis in the radiocarpal joint and TFCC. No acute fracture or dislocation identified. Soft tissues: Subcutaneous emphysema along the dorsal subcutaneous soft tissues. This could be secondary to an open wound versus gas- forming infection. Mild soft tissue swelling and fat stranding. No soft tissue abscess. IMPRESSION: Subcutaneous emphysema along the dorsal subcutaneous soft tissues. This could be secondary to an open wound versus gas-forming infection. Mild soft tissue swelling and fat stranding. Communications: Verify Receipt Electronically signed by: Kassie Knight M.D. 06/27/23 19:29 PM Discharge Plan Visit Data Chief Complaint: Altered Mental Status ED Provider: Messi Flanagan Discharge Problem: Acute confusion, Laceration of right hand with infection Patient Disposition: Being Evaluated by Hospitalist Forms Stand Alone Forms: My [email or web address] Prescriptions Prescriptions: No Action zoledronic [id number]-[id number]-adtim 5 mg/100 mL piggyback 1 ea IV YEARLY Qty: 100 0RF amlodipine 5 mg tablet 5 mg PO DAILY Qty: 90 3RF hydrochlorothiazide 25 mg tablet 25 mg PO DAILY Qty: 90 3RF prednisone 5 mg tablet 2.5 mg PO BID Qty: 180 1RF pregabalin 150 mg capsule 150 mg PO TID Qty: 90 2RF diclofenac sodium [Voltaren Arthritis Pain] 1 % gel 2 g topical QID Qty: 200 2RF levothyroxine 88 mcg tablet 88 mcg PO DAILYBB Eliquis 2.5 mg tablet 2.5 mg PO BID fluticasone propionate [Allergy Relief (fluticasone)] 50 mcg/actuation spray,suspension 1 spray intranasal DAILY Qty: 9.9 1RF Rx Instructions: administer into each nostril once daily chlorpheniramine-dextromethorp 4-30 mg tablet 1 tab PO TID PRN (Reason: cough) Qty: 30 1RF Rx Instructions: Take 1 tab twice a day for 7 days and then as needed dexlansoprazole [Dexilant] 60 mg capsule,biphase delayed releas 60 mg PO DAILY duloxetine 60 mg capsule,delayed release(DR/EC) 60 mg PO HS pramipexole 1 mg tablet 2 mg PO HS Xiidra 5 % Dropperette 1 drp OPHTHALMIC (EYE) BID PRN (Reason: Dry Eye(S)) ipratropium bromide 21 mcg (0.03 %) [place],Non-Aerosol 2 spray INTRANASAL BID PRN (Reason: Allergy Symptoms) cholecalciferol (vitamin D3) 25 mcg (1,000 unit) Capsule 1,000 unit PO QAM Qty: 30 0RF calcium carbonate [Calcium 500] 500 mg calcium (1,250 mg) Tablet 1,000 mg PO BID Referrals Referrals: Ирина Ngo DO [Primary Care Provider] - Discharge Problem: Laceration of right hand with infection Qualifiers: Encounter type: initial encounter Qualified Code(s): S61.411A - Laceration without foreign body of right hand, initial encounter; L08.9 - Local infection of the skin and subcutaneous tissue, unspecified
--- NOTE | 2023-06-27 17:03 | XRay Report ---
XR hand RT min 3V routine CLINICAL HISTORY: injury TECHNIQUE: 3 views of the right hand were obtained. Comparison: Comparison is made to right hand radiograph 07/16/2022 FINDINGS: There is no evidence of an acute fracture. Degenerative changes are seen most prominent at the interp halangeal joints. Subluxation of the second digit DIP and fifth digit PIP joints are seen. Soft tissu e swelling is seen. IMPRESSION: Extensive osteoarthritic changes without evidence of acute fracture. ACT 112: Negative or not required by law. Electronically signed by: Mitch Rodney M.D. 06/27/2023 5:00 PM
[2023-06-27 17:15] LABS: Appearance Urine Clear (Clear); Bilirubin Urine Negative (Negative); Blood Urine Negative (Negative); Cast Urine Automated 0 /lpf (0-5); Color Urine Yellow; Glucose Urine UA Negative (Negative); Ketones Urine 2+ (Negative); Leukocyte Esterase Urine Trace (Negative); Nitrite Urine Negative (Negative); Protein Urine Negative (Negative); RBC Urine Automated 0-4 /hpf (0-4); Specific Gravity Urine 1.015 (1.000-1.030); Urobilinogen Urine Negative (Negative); pH Urine 6.5 (4.5-7.5)
[2023-06-27 17:32] LABS: Bacteria Urine Automated 3+ (Negative)
[2023-06-27 17:43] LABS: Amphetamines+Metham, Urine Neg (Neg); Barbiturates, Urine Neg (Neg); Benzodiazepine, Urine Neg (Neg); Cocaine, Urine Neg (Neg); MDMA (Ecstacy), Urine Neg (Neg); Marijuana, Urine Neg (Neg); Methadone, Urine Neg (Neg); Opiate, Urine Neg (Neg); Phencyclidine, Urine Neg (Neg)
--- NOTE | 2023-06-27 19:30 | CT Scan Report ---
Exam(s): CT EXTREMITY RIGHT UPPER Without Contrast EXAM: CT Right Upper Extremity Without Intravenous Contrast CLINICAL HISTORY: Reason for exam: free air. TECHNIQUE: Axial computed tomography images of the right upper extremity without intravenous contrast. CTDI is 13.11 mGy and DLP is 304.06 mGy-cm. Automated exposure control was utilized for the study. A dose lowering technique was utilized adhering to the principles of ALARA. COMPARISON: Same date right hand radiographs. FINDINGS: Bones/joints: Degenerative changes throughout the right and at the MCP joints and interphalangeal joints, most severe at the second DIP joint and fifth PIP joint. Angulation noted at the right second DIP joint and right fifth PIP joint. Chondrocalcinosis in the radiocarpal joint and TFCC. No acute fracture or dislocation identified. Soft tissues: Subcutaneous emphysema along the dorsal subcutaneous soft tissues. This could be secondary to an open wound versus gas- forming infection. Mild soft tissue swelling and fat stranding. No soft tissue abscess. IMPRESSION: Subcutaneous emphysema along the dorsal subcutaneous soft tissues. This could be secondary to an open wound versus gas-forming infection. Mild soft tissue swelling and fat stranding. Communications: Verify Receipt Electronically signed by: Kassie Knight M.D. 06/27/23 19:29 PM
--- NOTE | 2023-06-27 19:31 | History & Physical Report ---
Date of Service June 27, 2023 Assessment & Plan (1) Cellulitis of right hand: Plan: Right hand wound, cellulitis Patient has been picking at the wound and hallucinating worms coming out of this Hand x-ray without acute fracture CThand shows subcutaneous emphysema along with dorsal subcutaneous soft tissue which could be secondary to open wound versus gas-forming infection. Mild soft tissue swelling and fat stranding. 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 Sensation to soft touch is intact in the hand and all fingertips. Over lying trace erythema is present and was marked with a surgical pen No purulence is present If no pain and reassuring clinical appearance, suspect gas noted on CT of the hand is due to picking and an open wound; low clinical suspicion for necrotizing fasciitis. Discussed with Dr. Barr on admit, in agreement as above. Can treat with antibiotics at this cellulitis and areas most likely due to the open wound, and can have outpatient follow-up. If she clinically progresses will expand antibiotics and reconsult Ortho Continue Rocephin daily. Expand to zosyn and consult sx if worsening. (2) Encephalopathy: Plan: Encephalopathy, hallucinations Patient was doing that she has worms coming out of her body Has had hallucinations with prior pneumonia/UTIs which cleared w tx Urine tox is negative No headache, no focal neurologic deficits Denies urinary symptoms, UA is with leukocyte esterase/bacteria but with 10-20 epithelial cells infected versus contaminated appearing. UC is pending. Patient is covered with Rocephin as noted. No uremia, no known toxic ingestion, no strokelike symptoms. Denies falls. CT of the head is with no acute finding Appears to be mentating at baseline with no hallucinations at time of visit, this appears to have cleared/improved. Hallucinations involving worms on the floor and wiggling highly consistent waxing/waning delirium provoked by infection and injury (3) Rheumatoid arthritis: Plan: Rheumatoid arthritis Home prednisone continued, was previously on methotrexate but this was discontinued (4) Asthma: Plan: Asthma Continue daily Trelegy and albuterol as needed No acute exacerbation Last PFTs with ratio of 0.76 and bronchodilator response Also with chronic upper cough syndrome. 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 Apixaban temporarily converted to Lovenox in the event that her and infection worsens and surgical intervention is Disposition: Medical/surgical CODE STATUS: DNR/DN History of Present Illness Primary Care Provider: DO Iman Munoz is a 88yo F with past medical history of GERD, hypothyroidism, fibromyalgia, history of UTIs with metabolic encephalopathy/hallucinations with these, ambulatory dysfunction, and TIAs who presented to the ER with concerns for hallucinations and a right hand injury. Patient had reportedly closed a door and got her hand caught in a door jam 2 nights ago and had a cut to the back of her right hand; she is right-hand dominant. Since that time patient has reportedly been picking at the wound with multiple bloodsoaked tissues found with her by her friend. There is initial concern for gas on the hand x-ray. This was discussed with Dr. Cervantes while patient was in the ER; this was felt to represent picking but not a necrotizing infection requiring emergent surgical treatment. Patient is with no leukocytosis, normal renal function, no uremia and a contaminated versus infected appearing UA with leukocyte esterase, 3+ bacteria but moderate epithelial cells cut with the hand last night. has been picking it, picking worms out of the hand and feels she has worms all over.Patient has slept poorly for 2 nights, was loosening worms coming out of her body, and has been distressed for the last 2 days. She denies dysuria/polyuria/hematuria and no foul odor to the urine. She does not feel like she has a bladder UTI currently. Per patient: She will be seen at the bedside. She is oriented to name, year, month, and place. She is no longer seeing worms coming from her hand but notes that for the last 2 days she felt like she saw countless differently sized and shaped worms coming out of her hand and her body and wiggling on the floor. She has had hallucinations with UTIs and pneumonia, she has not had anything like this in the last 5 years and prior hallucinations were more confusing people and places. She currently feels like she is back to her normal baseline, and wishes she has tried to take a picture of the worms because then she would know for sure if they were there or not. She denies chest pain or chest pressure. No lightheadedness or dizziness. Denies fever, chills, sweats. No nausea/vomiting. She does not have photosensitivity. No headache or neck pain. She reports she did take her medications this morning. Does not use tobacco products or alcohol, no [id number] product use recently. DNR/DNI, which is consistent with her prior CODE STATUS Allergies Allergy/AdvReac Type Severity Reaction Status Date / Time morphine Allergy Unknown DIZZINESS Verified 06/27/23 13:23 nickel Allergy Unknown EARS GET Verified 06/27/23 13:23 SORE FROM EARRINGS WITH NICKEL Penicillins Allergy Unknown RASH Verified 06/27/23 13:23 soy Allergy Unknown HEADACHE Verified 06/27/23 13:23 Sulfa (Sulfonamide Allergy Verified 06/27/23 13:23 Antibiotics) Home Medications Medication Instructions Recorded Confirmed Type dexlansoprazole 60 mg 60 mg PO DAILY 03/08/21 06/27/23 History capsule,biphase delayed release (Dexilant) duloxetine 60 mg capsule,delayed 60 mg PO HS 03/08/21 06/27/23 History release ipratropium bromide 21 mcg (0.03 2 spray intranasal BID PRN Allergy 03/08/21 06/27/23 History %) nasal spray Symptoms lifitegrast 5 % eye drops in a 1 drp ophthalmic (eye) BID PRN Dry 03/08/21 06/27/23 History dropperette (Xiidra) Eye(S) pramipexole 1 mg tablet 2 mg PO HS 03/08/21 06/27/23 History cholecalciferol (vitamin D3) 25 1,000 unit PO QAM #30 caps 03/14/21 06/27/23 Rx mcg (1,000 unit) capsule diclofenac sodium 1 % topical gel 2 g topical QID #200 grams 06/07/22 06/27/23 Rx (Voltaren Arthritis Pain) zoledronic acid 5 mg/100 mL in 1 ea IV YEARLY #100 mL 10/09/22 06/27/23 Rx mannitol 5 %-water intravenous piggybck amlodipine 5 mg tablet 5 mg PO DAILY #90 tabs 02/03/23 06/27/23 Rx hydrochlorothiazide 25 mg tablet 25 mg PO DAILY #90 tabs 03/03/23 06/27/23 Rx apixaban 2.5 mg tablet (Eliquis) 2.5 mg PO BID 04/28/23 06/27/23 History fluticasone propionate 50 1 spray intranasal DAILY #9.9 grams 04/28/23 06/27/23 Rx mcg/actuation nasal spray,suspension (Allergy Relief (fluticasone)) chlorpheniramine-dextromethorphan 1 tab PO TID PRN cough #30 tabs 05/09/23 06/27/23 Rx 4 mg-30 mg tablet prednisone 5 mg tablet 2.5 mg (1/2 x 5 mg) PO BID #180 06/11/23 06/27/23 Rx tabs pregabalin 150 mg capsule 150 mg PO TID #90 caps 06/11/23 06/27/23 Rx levothyroxine 88 mcg tablet 88 mcg PO DAILYBB 06/24/23 06/27/23 History calcium carbonate 500 mg calcium 1,000 mg PO BID 06/27/23 06/27/23 History (1,250 mg) tablet Past Med/Surg History Medical History Hypertension FH: cholecystectomy GERD (gastroesophageal reflux disease) Hypothyroidism Rheumatoid arthritis Anxiety Depression Fibromyalgia Surgical History History of lumbar fusion x2 H/O: hysterectomy History of partial nephrectomy H/O total knee replacement x2 H/O total hip arthroplasty Family History Other No pertinent family history Social History Smoking Status: Never smoker Second Hand Exposure: No; Do You Dip or Chew Tobacco: No; Hx Alcohol Use: No Hx Substance Use: No Preferred Language: Russian Communication Ability: Effective 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 Denies hallucinations at time of visit. Endorses that she did see worms on her hands and all over the floor which are no longer HEENT: Atraumatic, normocephalic. Pupils equal and reactive to light and accommodate Pulm: CTAB A&P. -wheezes, -rales, -rhonchi. Symmetrical chest rise. No increased work of breathing. No respiratory distress. Cardiac: RRR, -mrg. Radial pulses intact and symmetrical. Abdominal: Nontender, nondistended, soft. BS present. Right dorsal hand as pictured above. Director Educational Radio strength, finger extension, interosseous strength is all 5/5 with no pain on passive or active movement. Wrist flexion/extension is 5/5 active and passive without pain. No forearm tenderness. Sensation is soft touch is intact in all fingertips without deficit and symmetrical with the left hand Results & Data Results & Data Vital Signs (Past 12 Hours) Vital Signs Temp Pulse Resp BP Pulse Ox O2 Del Method O2 Flow Rate 06/27/23 18:30 160/91 H 06/27/23 18:30 83 20 98 06/27/23 18:20 96 H 23 93 06/27/23 18:10 95 H 18 98 06/27/23 18:00 83 17 97 06/27/23 18:00 167/88 H 06/27/23 17:50 84 16 95 06/27/23 17:40 84 14 99 06/27/23 17:30 146/71 H 06/27/23 17:30 79 16 100 06/27/23 17:20 82 17 100 06/27/23 17:10 84 15 98 06/27/23 17:00 82 14 97 06/27/23 17:00 181/104 H 06/27/23 16:51 93 H 06/27/23 16:50 94 H 19 06/27/23 15:46 96 Room Air 0 06/27/23 15:00 36.9 C 84 20 146/80 H 97 Room Air PG Care Time/CCT Total # of Minutes Spent Total Time Spent with Patient: Total time spent is greater than 50% in coordination of care (as documented) at patient's floor/unit and/or counseling patient: Coding Level of Care Code 61477 INT INP/OBS CARE MIN Diagnoses Cellulitis of right hand L03.113 Encephalopathy G93.40 Rheumatoid arthritis M06.9 Asthma J45.909
[2023-06-27] MEDS ORDERED: ZOLEDRONIC ACID 5 MG/100 ML VIAL IV SCH (21:58)
[2023-06-27] MEDS: DULoxetine HCL 60 MG CAP PO SCH (22:17)
[2023-06-27] MEDS: PRAMIPEXOLE DIHYDROCHLO 0.5 MG TAB PO SCH (22:17)
[2023-06-27] MEDS: predniSONE 2.5 MG TAB PO SCH (22:18)
[2023-06-27] MEDS: CALCIUM CARBONATE 1250MG TAB PO SCH (22:19)
[2023-06-27] MEDS: PREGABALIN 150 MG CAP PO SCH (22:21)
[2023-06-27] MEDS ORDERED: Patient's HEIGHT &/or WEIGHT Needed STA (22:28)
[2023-06-27] MEDS ORDERED: ARTIFICIAL TEARS OP PRN (22:31)
[2023-06-27] MEDS: ENOXAPARIN 80 MG/0.8 ML SYR SQ SCH (23:34)
[2023-06-28] MEDS: ACETAMINOPHEN 325 MG TAB PO PRN ×4 (02:38→15:17)
[2023-06-28] MEDS: LEVOTHYROXINE SODIUM 88 MCG TABLET PO SCH (06:34)
[2023-06-28 06:35] LABS: Basophils # (auto) 0.03 K/uL (0.00-0.20); Basophils % (auto) 0.6 %; Eosinophils # (auto) 0.17 K/uL (0.00-0.50); Eosinophils % (auto) 3.3 %; Hematocrit (blood only) 35.2 % (37.0-47.0); Hemoglobin 11.5 g/dl (12.0-16.0); Immature Granulocytes # (auto) 0.01 K/uL (0.01-0.20); Immature Granulocytes % (auto) 0.2 %; Lymphocytes # (auto) 1.19 K/uL (1.20-3.40); Lymphocytes % (auto) 23.3 %; Mean Corpuscular Hemoglobin 28.1 pg (25.0-34.0); Mean Corpuscular Hgb Conc 32.7 g/dL (32.0-36.0); Mean Corpuscular Volume 86.1 fL (80.0-100.0); Mean Platelet Volume 10.4 fL (9.4-12.4); Monocytes # (auto) 0.46 K/uL (0.11-0.59); Neutrophils # (auto) 3.25 K/uL (1.40-6.50); Neutrophils % (auto) 63.6 %; Platelet Count 220 K/uL (130-400); RDW Coefficient of Variation 16.3 % (11.5-14.5); RDW Standard Deviation 51.1 fL (36.4-46.3); Red Blood Count 4.09 M/uL (4.20-5.40); White Blood Count 5.11 K/ul (4.8-10.8)
[2023-06-28 07:05] LABS: Creatinine Clr Calc Pharmacy 73.8 ml/min; Est GFR (African American) 103.7 ml/min; Est GFR (Non-African American) 89.4 ml/min
[2023-06-28] MEDS ORDERED: ENOXAPARIN 1 MG/KG SC SCH (09:00)
[2023-06-28] MEDS: predniSONE 2.5 MG TAB PO SCH ×2 (09:02→20:33)
[2023-06-28] MEDS: hydroCHLOROthiazide 25 MG TAB PO SCH (09:02)
[2023-06-28] MEDS: CALCIUM CARBONATE 1250MG TAB PO SCH ×2 (09:02→20:31)
[2023-06-28] MEDS: PREGABALIN 150 MG CAP PO SCH ×3 (09:02→20:32)
[2023-06-28] MEDS: amLODIPine BESYLATE 5 MG TAB PO SCH (09:02)
[2023-06-28] MEDS: CHOLECALCIFEROL 25 MCG (1000 UNITS) TAB PO SCH (09:03)
[2023-06-28] MEDS ORDERED: POTASSIUM CHLORIDE CRTAB 20 MEQ TABCR PO STA (09:21)
--- NOTE | 2023-06-28 09:25 | Hospitalist Progress Note ---
Date of Service June 28, 2023 Assessment & Plan (1) Cellulitis of right hand: Plan: Right hand wound, cellulitis Patient has been picking at the wound and hallucinating worms coming out of this Hand x-ray without acute fracture CThand shows subcutaneous emphysema along with dorsal subcutaneous soft tissue which could be secondary to open wound versus gas-forming infection. Mild soft tissue swelling and fat stranding. Patient with opened wound as noted in H&P physical exam photo No purulence is present If no pain and reassuring clinical appearance, suspect gas noted on CT of the hand is due to picking and an open wound; low clinical suspicion for necrotizing fasciitis. -Some improvement in area of cellulitis -Continue antibiotics (2) Encephalopathy: Plan: Acute metabolic encephalopathy, with hallucinations, now resolved Has had hallucinations with prior pneumonia/UTIs which cleared w tx Urine tox is negative No headache, no focal neurologic deficits Denies urinary symptoms, UA is with leukocyte esterase/bacteria but with 10-20 epithelial cells infected versus contaminated appearing. UC is pending. Patient is covered with Rocephin as noted. No uremia, no known toxic ingestion, no strokelike symptoms. Denies falls. CT of the head is with no acute finding (3) Rheumatoid arthritis: Plan: Rheumatoid arthritis Home prednisone continued, was previously on methotrexate but this was discontinued (4) Asthma: Plan: Asthma Continue daily Trelegy and albuterol as needed No acute exacerbation Last PFTs with ratio of 0.76 and bronchodilator response Also with chronic upper cough syndrome. Was given chlorpheniramine for cough (5) Hypokalemia: Plan: Replace potassium Plan Continue hospitalization, hopefully discharge tomorrow on oral antibiotics CODE STATUS: DNR/DN Admission and Anticipated Discharge Date Admission Date: June 27, 2023 Subjective Patient seen and examined, alert oriented x 3, tolerating diet Review of Systems Review of Systems: All systems reviewed are negative, apart from the ones contained in the history. Physical Exam Physical Exam: The patient is awake, alert and oriented 3, well developed and well nourished, normocephalic and atraumatic, lying in bed and in no acute distress. HEENT--PERRL, EOMI, mucous membranes and oropharynx mildly dry Neck--supple. No JVD. No bruits. Thyroid normal, trachea midline, no adenopathy. Heart--normal S1 and S2. No murmurs, rubs or gallops. Lungs--clear bilaterally, no respiratory distress, no accessory muscle use. Abdomen--normal bowel sounds and soft. Extremities--no cyanosis or clubbing. No edema. Dermatologic--normal skin turgor, normal color, no abnormal lymph nodes, no rash. Neurologic--cranial nerves II through XII grossly intact. Rheumatologic--normal range of motion. Psychiatric--normal affect. Results & Data Results & Data Vital Signs (Past 12 Hours) Vital Signs Temp Pulse Resp BP Pulse Ox O2 Del Method 06/28/23 07:25 Room Air 06/28/23 07:07 98.2 F 86 16 112/55 L 92 Room Air 06/27/23 22:37 98.1 F 101 H 19 133/79 95 Room Air 06/27/23 21:58 98.1 F 101 H 19 133/79 95 Room Air PG Care Time/CCT Total # of Minutes Spent Total Time Spent with Patient: Total time spent is greater than 50% in coordination of care (as documented) at patient's floor/unit and/or counseling patient: Coding Level of Care Code 72170 SUB INP/OBS CARE 2/35MIN Diagnoses Cellulitis of right hand L03.113 Encephalopathy G93.40 Rheumatoid arthritis M06.9 Asthma J45.909 Hypokalemia E87.6 Time Spent (min) 35
[2023-06-28] MEDS: ENOXAPARIN 80 MG/0.8 ML SYR SQ SCH ×2 (09:26→20:30)
[2023-06-28] MEDS ORDERED: cefTRIAXone SODIUM 2,000 MG in DEXTROSE 5 % MINI-B 50 ML IV SCH (20:00)
[2023-06-28] MEDS: PRAMIPEXOLE DIHYDROCHLO 0.5 MG TAB PO SCH (20:30)
[2023-06-28] MEDS: DULoxetine HCL 60 MG CAP PO SCH (20:32)
[2023-06-29] MEDS: ACETAMINOPHEN 325 MG TAB PO PRN (05:28)
[2023-06-29] MEDS: LEVOTHYROXINE SODIUM 88 MCG TABLET PO SCH (05:29)
--- NOTE | 2023-06-29 06:02 | Electrocardiogram Report ---
Test Reason : Blood Pressure : / mmHG Vent. Rate : 089 BPM Atrial Rate : 089 BPM P-R Int : 168 ms QRS Dur : 080 ms QT Int : 388 ms P-R-T Axes : 112 081 -08 degrees QTc Int : 472 ms Sinus rhythm with Premature atrial complexes Anterior infarct , age undetermined Abnormal ECG When compared with ECG of 07-MAY-2023 19:31, Premature atrial complexes are now Present Anterior infarct is now Present T wave inversion now evident in Inferior leads Confirmed by Herman Ahn ([id number]) on 06/29/2023 6:01:52 AM Referred By: Confirmed By:Herman hAn
[2023-06-29 06:13] LABS: Basophils # (auto) 0.03 K/uL (0.00-0.20); Basophils % (auto) 0.6 %; Eosinophils # (auto) 0.16 K/uL (0.00-0.50); Eosinophils % (auto) 3.2 %; Hematocrit (blood only) 36.5 % (37.0-47.0); Hemoglobin 11.6 g/dl (12.0-16.0); Immature Granulocytes # (auto) 0.01 K/uL (0.01-0.20); Immature Granulocytes % (auto) 0.2 %; Lymphocytes # (auto) 1.53 K/uL (1.20-3.40); Lymphocytes % (auto) 30.8 %; Mean Corpuscular Hemoglobin 27.6 pg (25.0-34.0); Mean Corpuscular Hgb Conc 31.8 g/dL (32.0-36.0); Mean Corpuscular Volume 86.9 fL (80.0-100.0); Mean Platelet Volume 10.5 fL (9.4-12.4); Monocytes % (auto) 10.1 %; Neutrophils # (auto) 2.74 K/uL (1.40-6.50); Neutrophils % (auto) 55.1 %; Platelet Count 206 K/uL (130-400); RDW Coefficient of Variation 16.2 % (11.5-14.5); RDW Standard Deviation 51.8 fL (36.4-46.3); White Blood Count 4.97 K/ul (4.8-10.8)
[2023-06-29 06:30] LABS: BUN Creatinine Ratio 43.5 (10-20); Calcium 9.2 mg/dl (8.6-10.3); Creatinine Clr Calc Pharmacy 73.8 ml/min; Est GFR (African American) 103.7 ml/min; Est GFR (Non-African American) 89.4 ml/min; Potassium 3.7 mmol/L (3.5-5.1)
[2023-06-29] MEDS: amLODIPine BESYLATE 5 MG TAB PO SCH (09:00)
[2023-06-29] MEDS: PREGABALIN 150 MG CAP PO SCH (09:00)
[2023-06-29] MEDS: CHOLECALCIFEROL 25 MCG (1000 UNITS) TAB PO SCH (09:00)
[2023-06-29] MEDS: CALCIUM CARBONATE 1250MG TAB PO SCH (09:00)
[2023-06-29] MEDS: hydroCHLOROthiazide 25 MG TAB PO SCH (09:01)
[2023-06-29] MEDS: predniSONE 2.5 MG TAB PO SCH (09:01)
--- NOTE | 2023-06-29 10:00 | Discharge Summary ---
Date of Service June 29, 2023 Admission HPI Per Admitting Provider Iman is a 88yo F with past medical history of GERD, hypothyroidism, fibromyalgia, history of UTIs with metabolic encephalopathy/hallucinations with these, ambulatory dysfunction, and TIAs who presented to the ER with concerns for hallucinations and a right hand injury. Patient had reportedly closed a door and got her hand caught in a door jam 2 nights ago and had a cut to the back of her right hand; she is right-hand dominant. Since that time patient has reportedly been picking at the wound with multiple bloodsoaked tissues found with her by her friend. There is initial concern for gas on the hand x-ray. This was discussed with Dr. Cervantes while patient was in the ER; this was felt to represent picking but not a necrotizing infection requiring emergent surgical treatment. Patient is with no leukocytosis, normal renal function, no uremia and a contaminated versus infected appearing UA with leukocyte esterase, 3+ bacteria but moderate epithelial cells cut with the hand last night. has been picking it, picking worms out of the hand and feels she has worms all over.Patient has slept poorly for 2 nights, was loosening worms coming out of her body, and has been distressed for the last 2 days. She denies dysuria/polyuria/hematuria and no foul odor to the urine. She does not feel like she has a bladder UTI currently. Per patient: She will be seen at the bedside. She is oriented to name, year, month, and place. She is no longer seeing worms coming from her hand but notes that for the last 2 days she felt like she saw countless differently sized and shaped worms coming out of her hand and her body and wiggling on the floor. She has had hallucinations with UTIs and pneumonia, she has not had anything like this in the last 5 years and prior hallucinations were more confusing people and places. She currently feels like she is back to her normal baseline, and wishes she has tried to take a picture of the worms because then she would know for sure if they were there or not. She denies chest pain or chest pressure. No lightheadedness or dizziness. Denies fever, chills, sweats. No nausea/vomiting. She does not have photosensitivity. No headache or neck pain. She reports she did take her medications this morning. Does not use tobacco products or alcohol, no oqtj-[id number]-[id number] product use recently. DNR/DNI, which is consistent with her prior CODE STATUS Principal Diagnosis Cellulitis, acute encephalopathy Discharge Exam The patient is awake, alert and oriented 3, well developed and well nourished, normocephalic and atraumatic, lying in bed and in no acute distress. HEENT--PERRL, EOMI, mucous membranes and oropharynx mildly dry Neck--supple. No JVD. No bruits. Thyroid normal, trachea midline, no adenopathy. Heart--normal S1 and S2. No murmurs, rubs or gallops. Lungs--clear bilaterally, no respiratory distress, no accessory muscle use. Abdomen--normal bowel sounds and soft. Extremities--no cyanosis or clubbing. No edema. Dermatologic--normal skin turgor, normal color, no abnormal lymph nodes, no rash. Neurologic--cranial nerves II through XII grossly intact. Rheumatologic--normal range of motion. Psychiatric--normal affect. Discharge Data Allergies Allergy/AdvReac Type Severity Reaction Status Date / Time morphine Allergy Unknown DIZZINESS Verified 06/27/23 13:23 nickel Allergy Unknown EARS GET Verified 06/27/23 13:23 SORE FROM EARRINGS WITH NICKEL Penicillins Allergy Unknown RASH Verified 06/27/23 13:23 soy Allergy Unknown HEADACHE Verified 06/27/23 13:23 Sulfa (Sulfonamide Allergy Verified 06/27/23 13:23 Antibiotics) Consultations 06/27/23 19:01 ED Decision to Admit Stat Ordered Studies 06/27/23 14:49 CT head/brain wo con Stat 06/27/23 17:54 CT hand RT wo con Stat Hospital Course (1) Cellulitis of right hand: Right hand wound, cellulitis Patient has been picking at the wound and hallucinating worms coming out of this Hand x-ray without acute fracture CThand shows subcutaneous emphysema along with dorsal subcutaneous soft tissue which could be secondary to open wound versus gas-forming infection. Mild soft tissue swelling and fat stranding. Patient with opened wound as noted in H&P physical exam photo No purulence is present If no pain and reassuring clinical appearance, suspect gas noted on CT of the hand is due to picking and an open wound; low clinical suspicion for necrotizing fasciitis. -Some improvement in area of cellulitis -Continue antibiotics changed to p.o. cephalexin 500 mg twice daily for 5 more days -Discharge home (2) Encephalopathy: Acute metabolic encephalopathy, with hallucinations, now resolved Has had hallucinations with prior pneumonia/UTIs which cleared w tx Urine tox is negative No headache, no focal neurologic deficits Denies urinary symptoms, UA is with leukocyte esterase/bacteria but with 10-20 epithelial cells infected versus contaminated appearing. UC is pending. Patient is covered with Rocephin as noted. No uremia, no known toxic ingestion, no strokelike symptoms. Denies falls. CT of the head is with no acute finding (3) Rheumatoid arthritis: Rheumatoid arthritis Home prednisone continued, was previously on methotrexate but this was discontinued (4) Asthma: Asthma Continue daily Trelegy and albuterol as needed No acute exacerbation Last PFTs with ratio of 0.76 and bronchodilator response Also with chronic upper cough syndrome. Was given chlorpheniramine for cough (5) Hypokalemia: Replace potassium Plan Discharge home CODE STATUS: DNR/DN Total Time Total Time Spent Total Time Spent (In Minutes): 35 Discharge Plan Discharge Items Patient Disposition: Home - Self-Care Reason For Visit: CELLULITIS, AMS, DELIRIUM Discharge Diagnosis: cellulitis, acute encephalopathy Activity: Resume your previous activity Non-emergency contact: Primary Care Provider Call non-emergency contact if: you have any medication questions Follow-up/Referrals: Ирина Ngo DO [Primary Care Provider] - Diet: Regular Addtl Attending Provider Instructions: please make appointment to follow up with your regular PCP Pending Studies at Discharge: No Stand-Alone Forms: My [facility] XTWIP, Smoking Cessation Medications and DC Order Prescriptions: New cephalexin 500 mg capsule 500 mg PO BID 5 Days Qty: 10 0RF Continued zoledronic [id number] 5 mg/100 mL piggyback 1 ea IV YEARLY Qty: 100 0RF amlodipine 5 mg tablet 5 mg PO DAILY Qty: 90 3RF hydrochlorothiazide 25 mg tablet 25 mg PO DAILY Qty: 90 3RF prednisone 5 mg tablet 2.5 mg PO BID Qty: 180 1RF pregabalin 150 mg capsule 150 mg PO TID Qty: 90 2RF diclofenac sodium [Voltaren Arthritis Pain] 1 % gel 2 g topical QID Qty: 200 2RF levothyroxine 88 mcg tablet 88 mcg PO DAILYBB Eliquis 2.5 mg tablet 2.5 mg PO BID fluticasone propionate [Allergy Relief (fluticasone)] 50 mcg/actuation spray,suspension 1 spray intranasal DAILY Qty: 9.9 1RF Rx Instructions: administer into each nostril once daily chlorpheniramine-dextromethorp 4-30 mg tablet 1 tab PO TID PRN (Reason: cough) Qty: 30 1RF Rx Instructions: Take 1 tab twice a day for 7 days and then as needed dexlansoprazole [Dexilant] 60 mg capsule,biphase delayed releas 60 mg PO DAILY duloxetine 60 mg capsule,delayed release(DR/EC) 60 mg PO HS pramipexole 1 mg tablet 2 mg PO HS Xiidra 5 % Dropperette 1 drp OPHTHALMIC (EYE) BID PRN (Reason: Dry Eye(S)) ipratropium bromide 21 mcg (0.03 %) [place],Non-Aerosol 2 spray INTRANASAL BID PRN (Reason: Allergy Symptoms) cholecalciferol (vitamin D3) 25 mcg (1,000 unit) Capsule 1,000 unit PO QAM Qty: 30 0RF calcium carbonate 500 mg calcium (1,250 mg) Tablet 1,000 mg PO BID Discharge Orders: Discharge Order (Routine); Ordered 06/29/23 Ordered By: Alma Delia Padron/Other Patient Handouts: UTIs Admission Data Admit Date/Time: 06/27/23 19:56 Attending Provider: Alma Delia Thakur Admit Provider: Clarence Jasso Primary Care Provider: Ирина Ngo Other Providers: Clarence Jasso Other Interventions: Discharge Summary Assessment (RN) Last Done: 06/29/23 09:57 Coding Level of Care Code 09329 INP/OBS DISCH >30 MIN Diagnoses Cellulitis of right hand L03.113 Encephalopathy G93.40 Rheumatoid arthritis M06.9 Asthma J45.909 Hypokalemia E87.6 Time Spent (min) 35
[2023-06-29] MEDS: ENOXAPARIN 80 MG/0.8 ML SYR SQ SCH (11:20)
== END 2023-06-29 12:32 | disposition home or self-care (01) ==
LOC: ED 14:38 → 3N 14:38 → SUATTDRO 19:56 → 3N 21:12